=== PATIENT | male | born 1970 | race African-American/Black ===

== ENCOUNTER 2017-05-23 08:10 | Inpatient (IN) | payer MEDICARE ==
[~2017-05-23] VITALS: Ht 162.6 cm; Wt 69.4 kg
[2017-05-23] MEDS ORDERED: TIVICAY50 MG PO (08:28)
[2017-05-23] MEDS ORDERED: LASIX40 MG PO (08:28)
[2017-05-23] MEDS ORDERED: RENVELA800 MG PO (08:29)
[2017-05-23] MEDS ORDERED: MAG-OXIDE400 MG PO (08:31)
[2017-05-23] MEDS ORDERED: VENTOLIN HFA18 GM INH (08:32)
[2017-05-23 15:14] VITALS: BP 143/100; BMI 26.2
[2017-05-23 20:00] VITALS: BP 147/92
[2017-05-24 04:00] VITALS: BP 131/85
[2017-05-24 05:57] LABS: BASOPHILS 0.5 % (0-2); EOSINOPHILS 8.2 % (0-7); HEMATOCRIT 35.4 % (42.0-54.0); HEMOGLOBIN 11.1 g/dL (13.5-17.5); IMMATURE GRANULOCYTES 0.2 % (0-5); LYMPHOCYTES 19.6 % (15-50); MCH 25.5 pg (26.0-34.0); MCHC 31.4 g/dL (31.0-37.0); MCV 81.4 fL (80.0-100.0); MEAN PLATELET VOLUME 9.3 fL (7.4-10.4); MONOCYTES 14.9 % (2-11); NEUTROPHILS 56.6 % (40-80); PLATELET COUNT 287 10x3/uL (130-400); RBC 4.35 10x6/uL (4.20-6.10); RDW 17.3 % (11.5-14.5); WBC 5.7 10x3/uL (4.8-10.8)
[2017-05-24 06:32] LABS: CALCIUM 9.9 mg/dL (8.5-10.1); CARBON DIOXIDE 28.2 mmol/L (21.0-32.0); CREATININE - SERUM 13.7 mg/dL (0.6-1.3); POTASSIUM - SERUM 4.2 mmol/L (3.5-5.1)
[2017-05-24 06:33] LABS: PHOSPHOROUS 9.2 mg/dL (2.5-4.9)
[2017-05-24 09:12] VITALS: BP 157/92
[2017-05-24 10:02] VITALS: Ht 162.6 cm; Wt 69.4 kg
[2017-05-24 12:10] VITALS: BP 130/63
[2017-05-24 17:34] VITALS: BP 144/76
[2017-05-25 00:30] VITALS: BP 109/55
[2017-05-25 04:30] VITALS: BP 119/77
[2017-05-25 06:55] LABS: BASOPHILS 0.5 % (0-2); EOSINOPHILS 7.3 % (0-7); HEMATOCRIT 37.8 % (42.0-54.0); HEMOGLOBIN 11.6 g/dL (13.5-17.5); IMMATURE GRANULOCYTES 0.2 % (0-5); LYMPHOCYTES 25.5 % (15-50); MCH 25.3 pg (26.0-34.0); MCHC 30.7 g/dL (31.0-37.0); MCV 82.5 fL (80.0-100.0); MEAN PLATELET VOLUME 9.3 fL (7.4-10.4); MONOCYTES 15.2 % (2-11); NEUTROPHILS 51.3 % (40-80); PLATELET COUNT 299 10x3/uL (130-400); RBC 4.58 10x6/uL (4.20-6.10); RDW 17.7 % (11.5-14.5); WBC 5.5 10x3/uL (4.8-10.8)
[2017-05-25 07:23] LABS: ANION GAP 16.6 mmol/L (8-16); CALCIUM 10.1 mg/dL (8.5-10.1); CARBON DIOXIDE 27.8 mmol/L (21.0-32.0); CREATININE - SERUM 10.8 mg/dL (0.6-1.3); PHOSPHOROUS 7.6 mg/dL (2.5-4.9); POTASSIUM - SERUM 4.4 mmol/L (3.5-5.1)
[2017-05-25 09:37] VITALS: BP 126/78
[2017-05-25 12:33] VITALS: BP 111/73
== END 2017-05-25 15:18 | disposition home or self-care (01) | DRG 640 ==
LOC: D.OPS 08:10 → D.M2 08:11
PROVIDERS: Internal Medicine Nephrology
PROC: 5A1D70Z Performance of Urinary Filtration, Intermittent, Less than 6 Hours Per Day (ICD-10-PCS; principal; 2017-05-23)
DX: E87.5 Hyperkalemia (principal); N18.6 End stage renal disease; B20 Human immunodeficiency virus [HIV] disease; I12.0 Hypertensive chronic kidney disease with stage 5 chronic kidney disease or end stage renal disease; Z99.2 Dependence on renal dialysis; Z91.15 Patient's noncompliance with renal dialysis; Z87.891 Personal history of nicotine dependence; D63.1 Anemia in chronic kidney disease

== ENCOUNTER 2017-08-18 02:30 | Observation (INO) | payer MEDICARE ==
[~2017-08-18] VITALS: Ht 162.6 cm; Wt 71.6 kg
[~2017-08-18 02:30] MED LIST: LASIX40 MG PO; MAG-OXIDE400 MG PO; RENVELA800 MG PO; TIVICAY50 MG PO; VENTOLIN HFA18 GM INH
[2017-08-18 02:46] VITALS: BMI 25.7
[2017-08-18 04:00] VITALS: BP 137/85
[2017-08-18 07:00] VITALS: BP 125/72
[2017-08-18 13:02] VITALS: Ht 162.6 cm; Wt 71.6 kg
[2017-08-18 13:38] VITALS: BP 126/82
[2017-08-18 20:00] VITALS: BP 104/57
[2017-08-19] VITALS: BP 107/59
[2017-08-19 04:30] VITALS: BP 104/59
[2017-08-19 08:16] VITALS: BP 114/60
[2017-08-19 11:23] VITALS: BP 107/74
== END 2017-08-19 16:44 | disposition home or self-care (01) ==
LOC: OBSVTIME 02:30 → D.M2 02:30
DX: E87.5 Hyperkalemia (principal); J81.1 Chronic pulmonary edema; N18.6 End stage renal disease; Z99.2 Dependence on renal dialysis; Z91.15 Patient's noncompliance with renal dialysis

== ENCOUNTER 2018-12-03 21:38 | Inpatient (IN) | payer MEDICARE ==
[~2018-12-03] VITALS: Ht 162.6 cm; Wt 78.1 kg
[2018-12-03] MEDS ORDERED: COREG 3.1253.125 MG PO (21:42)
[2018-12-03] MEDS ORDERED: SENSIPAR60 MG PO (21:43)
[2018-12-03 22:44] LABS: BASOPHILS 0.5 % (0-2); EOSINOPHILS 2.7 % (0-7); HEMOGLOBIN 10.5 g/dL (13.5-17.5); IMMATURE GRANULOCYTES 0.3 % (0-5); LYMPHOCYTES 14.2 % (15-50); MCH 25.4 pg (26.0-34.0); MCHC 31.8 g/dL (31.0-37.0); MCV 79.7 fL (80.0-100.0); MONOCYTES 10.6 % (2-11); NEUTROPHILS 71.7 % (40-80); RBC 4.14 10x6/uL (4.20-6.10); RDW 19.5 % (11.5-14.5); WBC 8.8 10x3/uL (4.8-10.8)
[2018-12-03 22:45] LABS: PLATELET COUNT 177 10x3/uL (130-400)
[2018-12-03 23:04] LABS: ALBUMIN 3.7 g/dL (3.4-5.0); ANION GAP 21.1 mmol/L (8-16); BILIRUBIN - TOTAL 1.03 mg/dL (0.2-1.3); CALCIUM 8.4 mg/dL (8.5-10.1); CARBON DIOXIDE 22.6 mmol/L (21.0-32.0); CREATININE - SERUM 19.8 mg/dL (0.6-1.3); POTASSIUM - SERUM 5.7 mmol/L (3.5-5.1); PROTEIN - SERUM 8.6 g/dL (6.4-8.2)
--- NOTE | 2018-12-03 23:09 | NUR ---
CRITICAL LAB, GLUCOSE 63, EDP SOURAV NOTIFIED.
--- NOTE | 2018-12-03 23:12 | NUR ---
PT PROVIDED TURKEY SANDWICH WITH ORANGES. PT SITTING UPRIGHT ON BED. NO S/S OF ACUTE DISTRESS NOTED.
[2018-12-03 23:15] VITALS: BP 182/122
[2018-12-04] VITALS (49 sets, daily range): BP systolic 111–195; BP diastolic 68–136; Ht 162.6 cm; Wt 78.1 kg
--- NOTE | 2018-12-04 02:44 | NUR ---
PT TO UNIT AT 0025 FROM ER VIA WHEELCHAIR. TRANSFERS SELF TO ICU BED. ER NURSE WITH PT. PLACED ON MONITOR. SODIUM BICARB MIXED PER ORDERS. PT COMPLAINS OF NAUSEA AND BEGINS VOMITING. DR ELLSWORTH PAGED AT 0041 REPORTED NAUSEA AND VOMITING, ELEVATED BLOOD PRESSURES, RECEIVED ORDERS FOR ZOFRAN AND CARDENE DRIP. ORDERS ENTERED AND STARTED. ASSESSMENT COMPLETED, SEE FLOW SHEET. ON BEDSIDE COMMODE FOR SECOND TIME AT THIS TIME. SMALL SOFT BM NOTED ON FIRST. CALL LIGHT IN REACH. WILL CONTINUE TO OBSERVE.
[2018-12-04 04:59] LABS: ANION GAP 23.9 mmol/L (8-16); CALCIUM 8.1 mg/dL (8.5-10.1); CARBON DIOXIDE 21.8 mmol/L (21.0-32.0); POTASSIUM - SERUM 5.7 mmol/L (3.5-5.1)
--- NOTE | 2018-12-04 05:00 | NUR ---
PT WITH LOOSE STOOL. PROVIDES SELF PERICARE. I&OS COMPLETED. CALL LIGHT IN REACH.
[2018-12-04 05:07] LABS: CREATININE - SERUM 20.3 mg/dL (0.6-1.3)
--- NOTE | 2018-12-04 07:15 | NUR ---
REPORT RECEIVED. PT RESTING QUIETLY. PT IS RESERVE RIGHT ARM. HE HAS IVS IN HIS LEFT AC AND LEFT HAND. SODIUM BICARB @ 100ML/HR AND CARDIZEM AT 5MCG/HR. PT GETS DIALYSIS TUES, THURS, AND SAT. HE WILL RECEIVE DIALYSIS TODAY, WELL. PT IS WEARING O2 AT 2L. PT HAS NO COMPLAINTS OR NEEDS AT THIS TIME. WILL CONTINUE TO MONITOR.
--- NOTE | 2018-12-04 09:30 | NUR ---
PT TOOK AM MEDS WITH DRINK OF WATER. NO COMPLAINTS. HR IS SLIGHTLY TACHYCARDIC AT 101. COREG GIVEN. BP ELEVATED. WILL CONTINUE TO MONITOR.
--- NOTE | 2018-12-04 11:15 | NUR ---
PT CURRENTLY RECEIVING DIALYSIS. WILL GET ANOTHER ABG ONCE DIALYSIS IS DONE TO SEE WHAT PH LEVEL IS TO POSSIBLY START PT ON A DIET. WILL CONTINUE TO MONITOR.
--- NOTE | 2018-12-04 13:30 | NUR ---
PT STILL RECEIVING DIALYSIS. VSS. BICARB HAS FINISHED INFUSING. CARDIZEM DRIP STILL INFUSING AT 5MCG/HR. WILL CONTINUE TO MONITOR.
--- NOTE | 2018-12-04 15:54 | NUR ---
4 LITERS TAKEN OFF WITH DIALYSIS. SPOKE WITH TOYA CHRISTOPHER, REGARDING PT'S NEW ABG RESULTS. SAID IT WAS OKAY TO ORDER A DIET FOR HIM. WILL CONTINUE TO MONITOR.
--- NOTE | 2018-12-04 16:30 | NUR ---
TITRATED CARDENE FROM 5MCG/HR TO 2.5MCG/HR. WILL MONITOR BP.
--- NOTE | 2018-12-04 17:18 | NUR ---
BP 124/79. STOPPING CARDENE.
--- NOTE | 2018-12-04 19:41 | NUR ---
REPORT RECEIVED, SHIFT ASSESSMENT COMPLETED PER FLOW SHEET. AAOX4. PPP. VSS. DENIES NEEDS. SEE FLOW SHEET FOR COMPLETE ASSESSMENT. WILL CONTINUE TO MONITOR. CALL LIGHT WITHIN REACH.
--- NOTE | 2018-12-04 20:47 | NUR ---
CALL LIGHT ANSWERED, ASSISSTED TO BEDSIDE COMMODE, VOID X1 30 ML YELLOW URINE. ASSISSTED BACK IN BED. DENIES OTHER NEEDS. CALL LIGHT WITHIN REACH.
--- NOTE | 2018-12-04 22:08 | NUR ---
RESTING IN BED, WATCHING TV, DENIES NEEDS. CALL LIGHT WITHIN REACH.
--- NOTE | 2018-12-04 23:17 | NUR ---
REASSESSMENT COMPLETED PER FLOW SHEET, SEE FOR DETAILS. NO ACUTE CHANGES NOTED. DENIES NEEDS. CALL LIGHT WITHIN REACH. WILL CONTINUE TO MONITOR.
[2018-12-05] VITALS (13 sets, daily range): BP systolic 98–156; BP diastolic 48–110
--- NOTE | 2018-12-05 01:34 | NUR ---
RESTING, DENIES NEEDS. WILL CONTINUE TO MONITOR.
--- NOTE | 2018-12-05 03:18 | NUR ---
REASSESSMENT COMPLETED PER FLOW SHEET, SEE FOR DETAILS. DENIES NEEDS. CALL LIGHT WITHIN REACH. WILL CONTINUE TO MONITOR.
--- NOTE | 2018-12-05 05:00 | NUR ---
DENIES NEEDS, NO ACUTE DISTRESS NOTED, CALL LIGHT WITHIN REACH.
--- NOTE | 2018-12-05 06:53 | NUR ---
SPOKE TO DR. ELLSWORTH, ORDERS RECEIVED TO GIVE COREG NOW AND ORDER CBC, BMP.
--- NOTE | 2018-12-05 07:00 | NUR ---
RECEIVED BEDSIDE REPORT ON PATIENT AND ASSUMED CARE OF PATIENT. DR. ELLSWORTH AT ROOM OK TO TRANSFER TO FLOOR, WILL NEED DIALYSIS TODAY. VSS. PATIENT ALERT AND ORIENTED X 4. HEAD TO TO ASSESSMENT COMPLETED. FISTULA TO RIGHT WRIST WITH POSITIVE THRILL AND BRUIT. IV 18 GA TO LEFT AC NSL AND IV 22 GA TO RIGHT FA NSL.
[2018-12-05 07:59] LABS: BASOPHILS 0.6 % (0-2); EOSINOPHILS 9.2 % (0-7); HEMATOCRIT 31.1 % (42.0-54.0); HEMOGLOBIN 9.9 g/dL (13.5-17.5); MCH 25.4 pg (26.0-34.0); MCHC 31.8 g/dL (31.0-37.0); MCV 79.9 fL (80.0-100.0); MEAN PLATELET VOLUME 8.4 fL (7.4-10.4); MONOCYTES 11.8 % (2-11); NEUTROPHILS 61.4 % (40-80); RBC 3.89 10x6/uL (4.20-6.10); RDW 19.6 % (11.5-14.5)
[2018-12-05 08:07] LABS: ANION GAP 17.9 mmol/L (8-16); CALCIUM 7.6 mg/dL (8.5-10.1); CARBON DIOXIDE 26.7 mmol/L (21.0-32.0)
[2018-12-05 08:09] LABS: CREATININE - SERUM 13.7 mg/dL (0.6-1.3); POTASSIUM - SERUM 4.6 mmol/L (3.5-5.1)
[2018-12-05 08:10] LABS: PLATELET COUNT 137 10x3/uL (130-400); WBC 3.5 10x3/uL (4.8-10.8)
--- NOTE | 2018-12-05 08:19 | NUR ---
PATIENT ATE 100% OF BREAKFAST TRAY.
--- NOTE | 2018-12-05 09:07 | NUR ---
PATIENT RESTING QUIETLY, WATCHING TV. VSS. MEDS PER MAR.
--- NOTE | 2018-12-05 09:58 | NUR ---
CALLED REPORT TO LACIE POLANCO PATIENT TO TRANSFER TO ROOM 2108.
--- NOTE | 2018-12-05 16:57 | NUR ---
DELIVERED THE PATIENT TO DIALYSIS VIA WHEELCHAIR
--- NOTE | 2018-12-05 19:55 | NUR ---
RETURN FROM DIALISYS VIA WC LCTA DENIES PAIN OR NEEDS SKIN WARM AND DRY TO BED LOW AND LOCKED WITH CALL LIGHT IN REACH
[2018-12-06] VITALS: BP 143/98
[2018-12-06 04:00] VITALS: BP 128/85
[2018-12-06 05:10] LABS: BASOPHILS 0.6 % (0-2); EOSINOPHILS 6.4 % (0-7); HEMATOCRIT 31.6 % (42.0-54.0); HEMOGLOBIN 10.3 g/dL (13.5-17.5); IMMATURE GRANULOCYTES 0.3 % (0-5); LYMPHOCYTES 17.8 % (15-50); MCHC 32.6 g/dL (31.0-37.0); MCV 79.8 fL (80.0-100.0); MEAN PLATELET VOLUME 9.1 fL (7.4-10.4); MONOCYTES 22.7 % (2-11); NEUTROPHILS 52.2 % (40-80); RBC 3.96 10x6/uL (4.20-6.10); RDW 19.4 % (11.5-14.5); WBC 3.3 10x3/uL (4.8-10.8)
[2018-12-06 05:37] LABS: ANION GAP 15.9 mmol/L (8-16); CALCIUM 7.5 mg/dL (8.5-10.1); CARBON DIOXIDE 28.1 mmol/L (21.0-32.0); CREATININE - SERUM 11.2 mg/dL (0.6-1.3); PHOSPHOROUS 7.5 mg/dL (2.5-4.9)
[2018-12-06 05:46] LABS: PLATELET COUNT 167 10x3/uL (130-400)
--- NOTE | 2018-12-06 07:20 | NUR ---
INITIAL ROUNDING, BEDSIDE REPORT. PATIENT IS SLEEPING ON HIS RIGHT SIDE, LIGHTS AND TV OFF. CALL LIGHT IN REACH. PATIENT IS BEING DISCHARGED HOME TODAY AFTER WEANING OFF O2.
[2018-12-06 08:00] VITALS: BP 121/82
--- NOTE | 2018-12-06 09:32 | MORECARE ---
CASE MANAGEMENT DISCHARGE SUMMARY PATIENT: LARRY CRUZ UNIT: [id number] ADM DATE: 12/03/18 AGE: 48 : 74 SEX: M ROOM/BED: D.2108 AUTHOR: CAILIN,DOC PHYSICIAN: REFERRING PHYSICIAN: FRED STRAUSS MD DATE OF SERVICE: 12/06/18 Discharge Plan Patient Name: LARRY CRUZ Facility: [facility]:[place] : 1970 Planned Disposition: Home Anticipated Discharge Date: 12/06/18 Discharge Date: Expected LOS: 3 Initial Reviewer: [email or web address] Initial Review Date: 12/06/2018 Generated: 12/06/18 10:32 am Comments DCP- Discharge Planning Updated by [id number]: Michael Matthews on 12/06/18 8:[address] Patient Name: LARRY CRUZ Admission Status: ER Accout number: [id number] Admission Date: 12-03-2018 : 1970 Admission Diagnosis: Attending: Fred Strauss Current LOS: 3 Anticipated DC Date: 12-06-2018 Planned Disposition: Home Primary Insurance: MEDICARE A & B Discharge Planning Comments: CM RECEIVED DISCHARGE ORDER, MET WITH PT IN ROOM TO DISCUSS DISCHARGE PLANNING AND NEEDS. PT REPORTS LIVING AT HOME INDEPENDENTLY AND ALONE. PT HAS NEBULIZER WITH NO MEDICAL EQUIPMENT PROVIDER PREFERENCE AND NO OUTSIDE SERVICES ASSISTING IN THE HOME. PT HAS OUTPATIENT DIALYSIS IN [facility], 1130AM, [facility]. CM DISCUSSED AVAILABILITY OF HOME HEALTH, REHAB SERVICES AND MEDICAL EQUIPMENT. PT DENIES DISCHARGE NEEDS, REPORTS HIS MOTHER WILL PICK HIM UP FOR DISCHARGE HOME TODAY. IMPORTANT MESSAGE FROM MEDICARE PROVIDED AND EXPLAINED. SCUBA DIVING TEACHER NURSE NOTIFIED. Human Resources File Clerk: Michael Matthews DCPIA - Discharge Planning Initial Assessment Updated by [id number]: Michael Matthews on 12/06/18 9:28 am * Is the patient Alert and Oriented? Yes * How many steps to enter\exit or inside your home? NONE * PCP DR. SHAVONNE MELENDEZ * [facility]acy [facility] * Preadmission Environment Home Alone * ADLs Independent * Equipment Nebulizer * Other Equipment NO MEDICAL EQUIPMENT PROVIDER PREFERENCE * List name and contact numbers for known caregivers / representatives who currently or will assist patient after discharge: EVA CRUZ, MOTHER, * Verbal permission to speak to the caregivers and representatives has been obtained from the patient. N/A * Community resources currently utilized Other * Please name any agencies selected above. OUTPATIENT DIALYSIS, [facility] [place], [facility], [employer] * Additional services required to return to the preadmission environment? No * Can the patient safely return to the preadmission environment? Yes * Has this patient been hospitalized within the prior 30 days at any hospital? No Coverage Notice Reviewer: [id number] Ingrid Matthews Notice Issued Date-Time: 12/06/2018 9:15 Notice Type: IM Discharge Notice Notice Delivered To: Patient Relationship to Patient: Packaging Machine Operator Name: Delivery Method: HAND - Hand Delivered Ellie Days: Prior Verbal Notification: Recipient Understood Notice: Yes Recipient Signature: Yes Med Rec Note Co-signed by Attending: Coverage Notice Comment: Patient Name: LARRY CRUZ Page [phone] at 0932 All edits/amendments must be made on the electronic document DICTATION DATE: 12/06/18931 MACHINE STEMMER: ISAK 12/06/18931 RPT#: [id number] DC DATE: STATUS: ADM IN [facility] [address] [place] [address] END OF REPORT
--- NOTE | 2018-12-06 12:48 | NUR ---
BOTH IVS REMOVED FROM THE LEFT ARM, BOTH TIPS INTACT.
== END 2018-12-06 15:09 | disposition home or self-care (01) | DRG 640 ==
LOC: D.ER 21:38 → D.ICU 23:37 → D.M2 12-05 10:31
PROVIDERS: Emergency Medicine; ADMIT Internal Medicine Nephrology; ATTEND Internal Medicine Nephrology
PROC: 5A1D70Z Performance of Urinary Filtration, Intermittent, Less than 6 Hours Per Day (ICD-10-PCS; principal; 2018-12-04)
DX: E87.5 Hyperkalemia (principal); N18.6 End stage renal disease; I12.0 Hypertensive chronic kidney disease with stage 5 chronic kidney disease or end stage renal disease; B20 Human immunodeficiency virus [HIV] disease; R04.2 Hemoptysis; E11.22 Type 2 diabetes mellitus with diabetic chronic kidney disease; Z99.2 Dependence on renal dialysis; E83.39 Other disorders of phosphorus metabolism; D63.1 Anemia in chronic kidney disease; E87.70 Fluid overload, unspecified

== ENCOUNTER 2019-05-03 01:45 | Inpatient (IN) | payer MEDICARE ==
[~2019-05-03] VITALS: Ht 162.6 cm; Wt 77.6 kg
[2019-05-03] VITALS (7 sets, daily range): BP systolic 112–205; BP diastolic 68–131; Ht 162.6 cm; Wt 77.6 kg
[~2019-05-03 01:45] MED LIST changes: +COREG 3.1253.125 MG PO; +SENSIPAR60 MG PO
[2019-05-03] MEDS ORDERED: TENOFOVIR PO (02:10)
[2019-05-03 02:12] LABS: BASOPHILS 0.2 % (0-2); HEMATOCRIT 36.7 % (42.0-54.0); HEMOGLOBIN 11.8 g/dL (13.5-17.5); IMMATURE GRANULOCYTES 0.4 % (0-5); LYMPHOCYTES 20.4 % (15-50); MCH 26.3 pg (26.0-34.0); MCHC 32.2 g/dL (31.0-37.0); MCV 81.9 fL (80.0-100.0); MEAN PLATELET VOLUME 8.5 fL (7.4-10.4); MONOCYTES 10.3 % (2-11); NEUTROPHILS 62.7 % (40-80); PLATELET COUNT 137 10x3/uL (130-400); RBC 4.48 10x6/uL (4.20-6.10); RDW 18.4 % (11.5-14.5); WBC 5.2 10x3/uL (4.8-10.8)
[2019-05-03 02:19] LABS: ANION GAP 24.4 mmol/L (8-16); CALCIUM 8.9 mg/dL (8.5-10.1); CREATININE - SERUM 22.4 mg/dL (0.6-1.3); POTASSIUM - SERUM 5.4 mmol/L (3.5-5.1)
--- NOTE | 2019-05-03 02:20 | NUR ---
PT GIVEN ICE CHIPS, DENIES ANY FURTHER NEEDS AT THIS TIME. CALL LIGHT WITHIN REACH. WILL CONTINUE TO MONITOR.
[2019-05-03 02:31] LABS: ALBUMIN 3.8 g/dL (3.4-5.0); BILIRUBIN - TOTAL 0.81 mg/dL (0.2-1.3); PROTEIN - SERUM 8.8 g/dL (6.4-8.2); TROPONIN-I 0.05 ng/mL (0.000-0.060)
--- NOTE | 2019-05-03 03:45 | NUR ---
PATIENT ARRIVED TO ROOM 2140 AT 0315 VIA WHEELCHAIR. PATIENT IS AAOX4, UP AD CHER. PATIENT HAVE PIV TO LT AC, SL, PATENT, DRSG C/D/I. FISTULA IS LOCATED ON RT ARM. PATIENT TRANSFERED TO BED INDEPENDENTLY. INSTRUCTED ON HOW TO USE CALL LIGHT, BED CONTROLS, AND TO CALL FOR ASSISTANCE. QUICK START, MED REC, ADULT HX, SRS COMPLETE.
--- NOTE | 2019-05-03 23:58 | NUR ---
LYING IN BED RESTING WITH EYES CLOSED. NO SIGNS OR SYMPTOMS OF DISTRESS. RESPIRATIONS EVEN AND UNLABORED. UP AD CHER. ALERT AND ORINTED x4. NO PAIN AT THIS PRESENT TIME. PT ADIVSED TO CALL IF HE NEEDS ANYTHING, WILL CONTINUE TO MONITOR.
[2019-05-04 04:00] VITALS: BP 136/76
--- NOTE | 2019-05-04 04:23 | NUR ---
I have reviewed this patient and I concur with the Shift Assessment completed by the Licensed Practical Nurse today this shift.
[2019-05-04 05:51] LABS: HEMATOCRIT 36.7 % (42.0-54.0); HEMOGLOBIN 11.7 g/dL (13.5-17.5); MCH 26.1 pg (26.0-34.0); MCHC 31.9 g/dL (31.0-37.0); MCV 81.7 fL (80.0-100.0); MEAN PLATELET VOLUME 9.1 fL (7.4-10.4); PLATELET COUNT 141 10x3/uL (130-400); RBC 4.49 10x6/uL (4.20-6.10); RDW 18.3 % (11.5-14.5)
[2019-05-04 05:55] LABS: WBC 3.1 10x3/uL (4.8-10.8)
--- NOTE | 2019-05-04 06:05 | NUR ---
LYING IN BED RESTING WITH EYES CLOSED. EASLIY AROUSED DURING VERBAL STIMULATION. NO COMPLAINTS OF PAIN AT THIS TIME. RESPIRATIONS EVEN AND UNLABORED. NO SIGNS OR SYMPTOMS OF DISTRESS NOTED. 78 SR ON TELEMETRY CALL LIGHT WITHIN REACH AND BEDS IN LOWEST POSITION.
[2019-05-04 06:27] LABS: ANION GAP 21.4 mmol/L (8-16); CARBON DIOXIDE 24.2 mmol/L (21.0-32.0); CREATININE - SERUM 18.5 mg/dL (0.6-1.3); POTASSIUM - SERUM 4.6 mmol/L (3.5-5.1)
[2019-05-04 06:51] LABS: ELLIPTOCYTES OCC; EOSINOPHILS 6 % (0-7); LYMPHOCYTES 27 % (15-50); MONOCYTES 8 % (2-11); NEUTROPHILS 58 % (40-80); PLATELET ESTIMATE NORMAL; TARGET CELLS 1+
[2019-05-04 06:52] LABS: ROULEAUX OCC
--- NOTE | 2019-05-04 07:32 | NUR ---
PT RECEIVED LAYING IN BED, WOKE WHEN ENTERED ROOM. BOARD UPDATED, PT WITHOUT COMPLAINTS AT PRESENT.
[2019-05-04] MEDS ORDERED: COREG12.5 MG PO (10:48)
[2019-05-04] MEDS ORDERED: COZAAR50 MG PO (10:48)
--- NOTE | 2019-05-04 14:16 | MORECARE ---
CASE MANAGEMENT DISCHARGE SUMMARY PATIENT: LARRY CRUZ UNIT: [id number] ADM DATE: 05/03/19 AGE: 48 : 74 SEX: M ROOM/BED: D.2140 AUTHOR: CAILINDOC PHYSICIAN: REFERRING PHYSICIAN: CHADWICK PULIDO MD DATE OF SERVICE: 05/04/19 Discharge Plan Patient Name: LARRY CRUZ Facility: [facility]:[place] : 1970 Planned Disposition: Anticipated Discharge Date: Discharge Date: Expected LOS: Initial Reviewer: [id number] Initial Review Date: 05/04/2019 Generated: 05/04/19 3:16 pm Comments DCP- Discharge Planning Updated by [id number]: Hilary Will on 05/04/19 1:[address] Patient Name: LARRY CRUZ Admission Status: ER Accout number: [id number] Admission Date: 05-03-2019 : 1970 Admission Diagnosis: Attending: CHADWICK PULIDO Current LOS: 1 Anticipated DC Date: Planned Disposition: Primary Insurance: MEDICARE A & B Discharge Planning Comments: CM MET WITH PATIENT AFTER OBTAINING VERBAL CONSENT. STATES HAS AN AID AT HOME AND DOES NOT NEED HH, REHAB, OR ANY EQUIPMENT. HAS NEBULIZER AT HOME BUT IS OUT OF [facility] MEDS. ADAM CHRISTOPHER NOTIFIED AND SHE IS LOOKING INTO THIS. PATIENT HAD DIALYSIS HERE TODAY, GOES TO [facility] [place]. [facility] IS CALLING FAMILY TO PICK HIM UP. CM TO FOLLOW AND ASSIST NEEDED. Information Technology Audit Manager: Hilary Will DCPIA - Discharge Planning Initial Assessment Updated by [id number]: Hilary Will on 05/04/19 2:12 pm * Is the patient Alert and Oriented? Yes * PCP [facility] * [facility]acy [facility] * ADLs Independent * Other Equipment [facility] * List name and contact numbers for known caregivers / representatives who currently or will assist patient after discharge: MOTHER * Please name any agencies selected above. HAS AN AID THROUGH [facility] * Additional services required to return to the preadmission environment? No * Can the patient safely return to the preadmission environment? Yes * Has this patient been hospitalized within the prior 30 days at any hospital? No Patient Name: LARRY CRUZ Page [phone] at 1416 All edits/amendments must be made on the electronic document DICTATION DATE: 05/04/191415 SPACE TECHNOLOGIST: ISAK 05/04/191415 RPT#: [id number] DC DATE: STATUS: ADM IN [facility] [address] [place] [address] END OF REPORT
--- NOTE | 2019-05-04 14:32 | NUR ---
PT INFORMED OF DISCHARGE ORDERS AND DISCUSSED PLAN, STATES HE DOESN'T HAVE A RIDE TILL IN MORNING (FAMILY COMING FROM [facility]). SOLID WASTE ENGINEER AND CASE MGMT UPDATED.
--- NOTE | 2019-05-04 16:02 | MORECARE ---
CASE MANAGEMENT DISCHARGE SUMMARY PATIENT: LARRY CRUZ UNIT: [id number] ADM DATE: 05/03/19 AGE: 48 : 74 SEX: M ROOM/BED: D.2140 AUTHOR: CAILINDOC PHYSICIAN: REFERRING PHYSICIAN: CHADWICK PULIDO MD DATE OF SERVICE: 05/04/19 Discharge Plan Patient Name: LARRY CRUZ Facility: [facility]:[place] : 1970 Planned Disposition: Anticipated Discharge Date: Discharge Date: Expected LOS: Initial Reviewer: [id number] Initial Review Date: 05/04/2019 Generated: 05/04/19 5:02 pm Comments DCP- Discharge Planning Updated by [id number]: Hilary Will on 05/04/19 1:[address] Patient Name: LARRY CRUZ Admission Status: ER Accout number: [id number] Admission Date: 05-03-2019 : 1970 Admission Diagnosis: Attending: CHADWICK PULIDO Current LOS: 1 Anticipated DC Date: Planned Disposition: Primary Insurance: MEDICARE A & B Discharge Planning Comments: CM MET WITH PATIENT AFTER OBTAINING VERBAL CONSENT. STATES HAS AN AID AT HOME AND DOES NOT NEED HH, REHAB, OR ANY EQUIPMENT. HAS NEBULIZER AT HOME BUT IS OUT OF [facility] MEDS. ADAM CHRISTOPHER NOTIFIED AND SHE IS LOOKING INTO THIS. PATIENT HAD DIALYSIS HERE TODAY, GOES TO [facility] [place]. [facility] IS CALLING FAMILY TO PICK HIM UP. CM TO FOLLOW AND ASSIST NEEDED. Supervisor Asphalt Paving: Hilary Will DCPIA - Discharge Planning Initial Assessment Updated by [id number]: Hilary Will on 05/04/19 2:12 pm * Is the patient Alert and Oriented? Yes * PCP [facility] * [facility]acy [facility] * ADLs Independent * Other Equipment [facility] * List name and contact numbers for known caregivers / representatives who currently or will assist patient after discharge: MOTHER * Please name any agencies selected above. HAS AN AID THROUGH [facility] * Additional services required to return to the preadmission environment? No * Can the patient safely return to the preadmission environment? Yes * Has this patient been hospitalized within the prior 30 days at any hospital? No Last DP export: 05/04/19 1:16 pm Patient Name: LARRY CRUZ Page [phone] at 1602 All edits/amendments must be made on the electronic document DICTATION DATE: 05/04/191600 PHOTOGEOLOGIST: ISAK 05/04/191600 RPT#: [id number] DC DATE: STATUS: ADM IN [facility] [address] [place] [address] END OF REPORT
[2019-05-04 16:19] VITALS: BP 101/57
--- NOTE | 2019-05-04 17:46 | NUR ---
PT BEING DISCHARGED HOME. IV REMOVED. TELEMETRY REMOVED AND RETURNED TO CHIEF METER READER. INSTRUCTIONS REVIEWED AND SIGNED.
--- NOTE | 2019-05-06 10:30 | MORECARE ---
CASE MANAGEMENT DISCHARGE SUMMARY PATIENT: LARRY CRUZ UNIT: [id number] ADM DATE: 05/03/19 AGE: 48 : 74 SEX: M ROOM/BED: D.2140 AUTHOR: BRANDON SIMEON PHYSICIAN: REFERRING PHYSICIAN: CHADWICK PULIDO MD DATE OF SERVICE: 05/06/19 Discharge Plan Patient Name: LARRY CRUZ Facility: [facility]:[place] : 1970 Planned Disposition: Anticipated Discharge Date: Discharge Date: 05/04/2019 Expected LOS: Initial Reviewer: [email or web address] Initial Review Date: 05/04/2019 Generated: 05/06/19 11:30 am Comments DCP- Discharge Planning Updated by [id number]: Hilary Will on 05/04/19 1:[address] Patient Name: LARRY CRUZ Admission Status: ER Accout number: [id number] Admission Date: 05-03-2019 : 1970 Admission Diagnosis: Attending: CHADWICK PULIDO Current LOS: 1 Anticipated DC Date: Planned Disposition: Primary Insurance: MEDICARE A & B Discharge Planning Comments: CM MET WITH PATIENT AFTER OBTAINING VERBAL CONSENT. STATES HAS AN AID AT HOME AND DOES NOT NEED HH, REHAB, OR ANY EQUIPMENT. HAS NEBULIZER AT HOME BUT IS OUT OF [facility] MEDS. ADAM ASHWIN NOTIFIED AND SHE IS LOOKING INTO THIS. PATIENT HAD DIALYSIS HERE TODAY, GOES TO [facility] [place]. [facility] IS CALLING FAMILY TO PICK HIM UP. CM TO FOLLOW AND ASSIST NEEDED. Vp Director Of Creative Strategy: Hilary Will DCPIA - Discharge Planning Initial Assessment Updated by [id number]: Hilary Will on 05/04/19 2:12 pm * Is the patient Alert and Oriented? Yes * PCP [facility] * Pharmacy [facility] * ADLs Independent * Other Equipment [facility] * List name and contact numbers for known caregivers / representatives who currently or will assist patient after discharge: MOTHER * Please name any agencies selected above. HAS AN AID THROUGH [facility] * Additional services required to return to the preadmission environment? No * Can the patient safely return to the preadmission environment? Yes * Has this patient been hospitalized within the prior 30 days at any hospital? No Last DP export: 05/04/19 3:02 pm Patient Name: LARRY CRUZ Page [phone] at 1030 All edits/amendments must be made on the electronic document DICTATION DATE: 05/06/19 1030 CONDENSER SETTER: ISAK 05/06/19 1030 RPT#: [id number] DC DATE:05/04/19 STATUS: DIS IN [facility] [address] [place] [address] END OF REPORT
--- NOTE | 2019-05-07 09:24 | EC ---
PATIENT:LARRY CRUZ DATE OF SERVICE: 05/03/19 SEX: M MEDICAL RECORD: [id number] DATE OF : [birth year] LOCATION:D.M2 D.214 AGE OF PATIENT: 48 ADMISSION DATE: 05/03/19 REFERRING PHYSICIAN: INTERPRETING PHYSICIAN: THUY RAMOS MD ECHOCARDIOGRAM REPORT ECHO CHARGES 4 ECHO COMPLETE Date: 05/03/19 CLINICAL DIAGNOSIS: CARDIOMEGALY/ELEVATED BNP/HTN ECHOCARDIOGRAPHIC MEASUREMENTS (adult normal given) AC root (d.<3.7cm) 3.1 cm LV Septum d (<1.2 cm> 1.0 cm Valve Excursion 1.5 cm LV Septum (systole) 1.2 cm Left Atria (s.<4.0cm> 3.7 cm LVPW d(<1.2cm) 1.0 cm RV (d.<2.3cm) 3.0 cm LVPW (sytole) 1.3 cm LV diastole(<5.6CM) 4.4 cm MV E-F(>70mm/sec) cm LV systole 3.7 cm LVOT Diameter 1.8 cm MV exc.(>10mm) cm Est.ejection fraction (50-75%) % DOPPLER: LVIT cm/sec A 66.0 cm/sec E 107 cm/sec LA cm/sec RVSP 17.0 mmHg LVOT 75.0 cm/sec AOP1/2T m/s Asc. Ao 130 cm/sec RVOT cm/sec RA cm/sec PA cm/sec AV Gradient Peak 6.8 mmHg AV Mean 3.7 mmHg AV Area 1.3 cm MV Gradient Peak 5.8 mmHg MV Mean 2.4 mmHg MV Area cm COMMENTS: Certified Juvenile Probation Officer: 1 JORGE ANDREWSOE Research Engineer: 3 Dr. Sherman TAPE# PACS Pericardial Effusion N DATE OF SERVICE: Adequate 2D, color flow, spectral Doppler, and M-Mode. No LVH. LV internal dimensions are normal. Wall motion is normal. Shows global hypokinesis with reduced EF, estimated at 20% to 25%. Aortic valve is tricuspid. No evidence of stenosis by Doppler interrogation. Left atrium is normal at 3.7 cm. Mitral valve shows no prolapse. Trace MR. Right-sided chambers are grossly normal. Mild TR. ECHOCARDIOGRAM REPORT [id number] LARRY CRUZ TRANSINT:[id number] Voice Confirmation ID: [id number] DOCUMENT ID: [id number] THUY RAMOS MD at 0924 CC: [id number] DICTATION DATE: 05/03/19 1557 STAVE HEWER: 05/04/19 0255 DIS IN 05/04/19 [place] [id number] [place] [id number]
== END 2019-05-04 17:47 | disposition home or self-care (01) | DRG 291 ==
LOC: D.ER 01:45 → D.M2 02:31 → OBSVTIME 02:31 → D.M2 02:31
PROVIDERS: Family Medicine; ADMIT Family Medicine; ATTEND Family Medicine
PROC: 5A1D70Z Performance of Urinary Filtration, Intermittent, Less than 6 Hours Per Day (ICD-10-PCS; principal; 2019-05-03)
DX: I13.2 Hypertensive heart and chronic kidney disease with heart failure and with stage 5 chronic kidney disease, or end stage renal disease (principal); N18.6 End stage renal disease; N25.81 Secondary hyperparathyroidism of renal origin; I50.20 Unspecified systolic (congestive) heart failure; E11.22 Type 2 diabetes mellitus with diabetic chronic kidney disease; I16.0 Hypertensive urgency; E87.5 Hyperkalemia; Z21 Asymptomatic human immunodeficiency virus [HIV] infection status; Z91.15 Patient's noncompliance with renal dialysis; Z99.2 Dependence on renal dialysis; I42.9 Cardiomyopathy, unspecified; D63.1 Anemia in chronic kidney disease

== ENCOUNTER 2019-11-03 23:31 | Inpatient (IN) | payer MEDICARE ==
[~2019-11-03] VITALS: Ht 162.6 cm; Wt 71.8 kg
[~2019-11-03 23:31] MED LIST changes: +COREG12.5 MG PO; +COZAAR50 MG PO; +TENOFOVIR PO
[2019-11-04] VITALS (15 sets, daily range): BP systolic 80–161; BP diastolic 65–133; BMI 29.6
[2019-11-04 01:10] LABS: HEMOGLOBIN 8.8 g/dL (13.5-17.5); MCH 25.4 pg (26.0-34.0); MCHC 30.3 g/dL (31.0-37.0); MCV 83.8 fL (80.0-100.0); MEAN PLATELET VOLUME 9.2 fL (7.4-10.4); PLATELET COUNT 251 10x3/uL (130-400); RBC 3.46 10x6/uL (4.20-6.10); RDW 17.5 % (11.5-14.5); WBC 8.8 10x3/uL (4.8-10.8)
[2019-11-04 01:13] LABS: ANION GAP 18.7 mmol/L (8-16); CALCIUM 8.9 mg/dL (8.5-10.1); CARBON DIOXIDE 23.6 mmol/L (21.0-32.0); CREATININE - SERUM 19.4 mg/dL (0.6-1.3); POTASSIUM - SERUM 5.3 mmol/L (3.5-5.1)
[2019-11-04 01:31] LABS: ALBUMIN 3.4 g/dL (3.4-5.0); BILIRUBIN - TOTAL 0.68 mg/dL (0.2-1.3); C-REACTIVE PROTEIN 16.1 mg/dL (0.0-0.9); PROTEIN - SERUM 8.8 g/dL (6.4-8.2); THYROID STIMULATING HORMONE 1.69 uIU/mL (0.36-3.74); TROPONIN-I 0.059 ng/mL (0.000-0.060)
[2019-11-04 01:41] LABS: EOSINOPHILS 4 % (0-7); LYMPHOCYTES 8 % (15-50); MONOCYTES 22 % (2-11); NEUTROPHILS 66 % (40-80); PLATELET ESTIMATE NORMAL
--- NOTE | 2019-11-04 04:25 | NUR ---
PT RECIEVED TO ICU RM 2312. AWAKE AND ALERT. DENIES PAIN OR NEEDS. MONITOR EQUIP ESTABLISHED. VSS. SITTING ON THE SIDE OF THE BED. STATES THAT HE IS TIRED OF LAYING DOWN. ISOLATION FOR POSSIBLE COVID-19. REPORTS THAT HE HAS DIALYSIS T,T,S. SAYS HE MISSED DIALYSIS TUESDAY DUE TO NOT FEELING WELL. PROVIDED BEDSIDE COMMODE PER REQUEST.
--- NOTE | 2019-11-04 09:00 | NUR ---
PT SITTING ON SIDE OF BED, PT STATES "IT'S EASIER FOR ME TO BREATH, AND MY CHEST DOESN'T HURT SO BAD ANYMORE." WILL CONT TO MONITOR.
--- NOTE | 2019-11-04 10:45 | NUR ---
DIALYSIS NURSE AT BEDSIDE. WILL CONT TO MONITOR.
--- NOTE | 2019-11-04 11:00 | NUR ---
REASSESSMENT COMPLETED PER FLOWSHEET, SEE FLOWSHEET FOR INFORMATION. NO ACUTE NEEDS OR DISTRESS NOTED AT THIS TIME. VSS. DIALYSIS NURSE AT [facility].
--- NOTE | 2019-11-04 13:00 | NUR ---
PT RESTING IN BED WATCHING TV AT THIS TIME. DENIES ANY ACUTE NEEDS OR DISTRESS. WILL CONT TO MONITOR.
--- NOTE | 2019-11-04 14:44 | NUR ---
REPORT CALLED TO [facility] ON MED 2. WILL CONT TO MONITOR.
--- NOTE | 2019-11-04 15:23 | NUR ---
RECEIVED PT TO ROOM 2127, VIA WHEELCHAIR. ORIENTED PT TO ROOM AND CALL LIGHT, PLACED ON DROPLET ISOLATION FOR PUI. PROVIDED PT WITH WATER AND SNACKS. PT DENIES ANY NEEDS AT THIS TIME. CALL LIGHT IN REACH, NAD NOTED, WILL CONTINUE TO MONITOR.
--- NOTE | 2019-11-04 15:25 | NUR ---
TRANSFERRED PT TO ROOM 2128 ON MED 2. NOTIFIED BELKIS LERNERN AND SUSU PCT. PT DENIES ANY ACUTE NEEDS OR DISTRESS AT THIS TIME.
--- NOTE | 2019-11-04 15:50 | NUR ---
ORDER FOR SPUTUM CULTURE, SPUTUM CULTURE PROVIDED FOR PT BUT PT STATES THAT HE IS NOT HAVING A PROD. COUGH AT THIS TIME.
--- NOTE | 2019-11-04 17:14 | NUR ---
PAGED DR. YEBOAH X2 TIMES, WAITING SCOUT EXECUTIVE BACK.
--- NOTE | 2019-11-04 19:00 | NUR ---
BEDSIDE REPORT RECEIVED, PT CARE ASSUMED. INTRODUCED SELF AND WROTE NAME ON BOARD. PT LYING IN BED, AAOX4, WATCHING TV. REQUESTING CUP OF ICE, PROVIDED. DENIES ANY NEEDS AT THIS TIME. BED IN LOWEST, SR X1, CALL LIGHT WITHIN REACH. WILL CTM.
--- NOTE | 2019-11-04 21:40 | NUR ---
RECIEVED REPORT FROM Miguel POLANCO. ALERT AND ORIENTED X4. UP AD CHER. WALKED TO ROOM. CARRIED HIS OWN BELONGINGS. RT ARM RESERVED D/T FISTULA. AVF HAS GOOD BRUITT AND YRILL. DENIES ANY NEEDS AT THIS TIME.
[2019-11-05 05:00] VITALS: BP 106/61
[2019-11-05 06:49] LABS: BASOPHILS 0.1 % (0-2); EOSINOPHILS 0.1 % (0-7); HEMATOCRIT 28.1 % (42.0-54.0); HEMOGLOBIN 8.8 g/dL (13.5-17.5); IMMATURE GRANULOCYTES 1.1 % (0-5); LYMPHOCYTES 8.4 % (15-50); MCH 25.4 pg (26.0-34.0); MCHC 31.3 g/dL (31.0-37.0); MEAN PLATELET VOLUME 9.1 fL (7.4-10.4); MONOCYTES 11.2 % (2-11); NEUTROPHILS 79.1 % (40-80); PLATELET COUNT 240 10x3/uL (130-400); RBC 3.46 10x6/uL (4.20-6.10); RDW 17.1 % (11.5-14.5); WBC 8.2 10x3/uL (4.8-10.8)
[2019-11-05 06:56] LABS: MCV 81.2 fL (80.0-100.0)
[2019-11-05 07:23] LABS: ANION GAP 18.9 mmol/L (8-16); CALCIUM 8.8 mg/dL (8.5-10.1); CARBON DIOXIDE 22.6 mmol/L (21.0-32.0); CREATININE - SERUM 17.2 mg/dL (0.6-1.3); POTASSIUM - SERUM 5.5 mmol/L (3.5-5.1)
--- NOTE | 2019-11-05 07:30 | NUR ---
REPORT RECIEVED. PT SITTING SEMI FOWLERS IN BED. RR EVEN AND UNLABORED ON RA. HE HAS A L AC PIV THAT IS SL. HE HAS A RIGHT AVF AND GOES TO DIALYSIS TTS. BED LOCKED AND IN LOWEST POSITION, CALL LIGHT WITHIN REACH. WILL CTM
[2019-11-05 07:49] LABS: PHOSPHOROUS 12.4 mg/dL (2.5-4.9)
[2019-11-05 08:30] VITALS: BP 113/68
--- NOTE | 2019-11-05 08:45 | NUR ---
PT SET UP TO TAKE SHOWER PER REQUEST. WILL CTM
[2019-11-05 12:00] VITALS: BP 102/53; BP 88/50
[2019-11-05 12:42] VITALS: Ht 162.6 cm; Wt 71.8 kg
[2019-11-05 16:50] VITALS: BP 102/53
--- NOTE | 2019-11-05 17:57 | NUR ---
I have reviewed this patient and I concur with the Shift Assessment completed by the Licensed Practical Nurse today this shift.
--- NOTE | 2019-11-05 19:23 | NUR ---
RECEIVED PT FROM ER VIA WHEELCHAIR. PT IS AWAKE ALERT AND ORIENTED x4. RESPIRATIONS EVEN AND UNLABORED. CALL LIGHT AND OTHER PERSONAL ITEMS WITH IN REACH. WILL CONTINUE TO MONITOR
--- NOTE | 2019-11-05 19:30 | NUR ---
REPORT RECEIVED, WILL CONTINUE POC. PATIENT IS AAXO4, LYING ON LEFT SIDE. NO S/S OF DISTRESS OBSERVED, RR EVEN AND UNLABORED ON ROOM AIR. PATIENT DENIES NEEDS AT THIS TIME. CL IN REACH, BED LOCKED AND LOWERED. WILL CTM.
[2019-11-05 20:00] VITALS: BP 112/79
[2019-11-06 04:00] VITALS: BP 110/71
[2019-11-06 05:34] LABS: BASOPHILS 0.1 % (0-2); EOSINOPHILS 1.1 % (0-7); HEMATOCRIT 28.3 % (42.0-54.0); HEMOGLOBIN 8.9 g/dL (13.5-17.5); IMMATURE GRANULOCYTES 0.8 % (0-5); LYMPHOCYTES 12.3 % (15-50); MCH 25.3 pg (26.0-34.0); MCHC 31.4 g/dL (31.0-37.0); MCV 80.4 fL (80.0-100.0); MONOCYTES 11.3 % (2-11); NEUTROPHILS 74.4 % (40-80); RBC 3.52 10x6/uL (4.20-6.10); RDW 17.3 % (11.5-14.5); WBC 7.4 10x3/uL (4.8-10.8)
[2019-11-06 06:01] LABS: PLATELET COUNT 298 10x3/uL (130-400)
--- NOTE | 2019-11-06 06:21 | NUR ---
I have reviewed this patient and I concur with the Shift Assessment completed by the Licensed Practical Nurse today this shift.
[2019-11-06 06:22] LABS: PHOSPHOROUS 14.1 mg/dL (2.5-4.9)
[2019-11-06 10:11] LABS: BASOS 0 % (Not Estab.); CD4 - % CD4 POS. LYMPH 4.8 % (30.8-58.5); CD4 - ABSOLUTE CD4 HELPER 29 /uL (359-1519); EOS 0 % (Not Estab.); HEMATOCRIT 27.8 % (37.5-51.0); HEMOGLOBIN 8.8 g/dL (13.0-17.7); LYMPHS 7 % (Not Estab.); LYMPHS (ABSOLUTE) 0.6 x10E3/uL (0.7-3.1); MCH 25.8 pg (26.6-33.0); MCHC 31.7 g/dL (31.5-35.7); MCV 82 fL (79-97); MONOCYTES 10 % (Not Estab.); MONOCYTES (ABSOLUTE) 0.8 x10E3/uL (0.1-0.9); NEUTROPHILS 82 % (Not Estab.); NEUTROPHILS (ABSOLUTE) 6.7 x10E3/uL (1.4-7.0); PLATELETS 269 x10E3/uL (150-450); RBC 3.41 x10E6/uL (4.14-5.80); RDW 17.1 % (11.6-15.4); WBC 8.2 x10E3/uL (3.4-10.8)
[2019-11-06 11:00] VITALS: BP 97/54
[2019-11-06 12:10] LABS: HEPATITIS C ANTIBODY <0.1 S/CO RAT (0.0-0.9)
--- NOTE | 2019-11-06 12:55 | NUR ---
SPOKE TO DR CARVER TO CLARIFY PATIENT'S DIALYSIS DAYS, HE IS NOW A MWF, TTS ORDERS WERE DISCONTINUED AND MWF ORDERS PLACED.
[2019-11-06 15:00] VITALS: BP 139/87
--- NOTE | 2019-11-06 18:33 | NUR ---
DR CARVER DOES WANT PATIENT TO HAVE A TREATMENT TONIGHT. CALLED AND SPOKE TO NURSE. THEN TO RESUME MWF
--- NOTE | 2019-11-06 19:00 | NUR ---
REPORT RECEIVED, WILL CONTINUE POC. PATIENT IS AAOX4, LYING IN BED WATCHING TV. NO S/S OF DISTRESS OBSERVED, RR EVEN AND UNLABORED ON ROOM AIR. PATIENT DENIES NEEDS AT THIS TIME. CL IN REACH, BED LOCKED AND LOWERED. WILL CTM.
--- NOTE | 2019-11-06 20:40 | NUR ---
ESCORTED PATIENT TO DIALYSIS
[2019-11-06 20:57] VITALS: BP 127/87
[2019-11-06] MEDS ORDERED: PREDNISONE20 MG PO (22:38)
[2019-11-06] MEDS ORDERED: BACTRIM DS TAB1 EAC1 PO (22:44)
--- NOTE | 2019-11-06 23:07 | NUR ---
HEMODIALYSIS TREATMENT COMPLETED, 2L FLUID REMOVED, TOLERATED WELL.
[2019-11-07 04:34] VITALS: BP 145/98
[2019-11-07 05:19] LABS: BASOPHILS 0 % (0-2); EOSINOPHILS 0 % (0-7); HEMATOCRIT 31.1 % (42.0-54.0); HEMOGLOBIN 9.9 g/dL (13.5-17.5); IMMATURE GRANULOCYTES 0.7 % (0-5); LYMPHOCYTES 8.4 % (15-50); MCH 25.3 pg (26.0-34.0); MCHC 31.8 g/dL (31.0-37.0); MCV 79.5 fL (80.0-100.0); MONOCYTES 4.5 % (2-11); NEUTROPHILS 86.4 % (40-80); PLATELET COUNT 314 10x3/uL (130-400); RBC 3.91 10x6/uL (4.20-6.10)
--- NOTE | 2019-11-07 05:21 | NUR ---
DR. CARVER CALLED TO CHECK IF PATIENT WENT TO DIALYSIS YESTERDAY. INFORMED HER THAT HE DID FOR ABOUT 2HRS. SHE SAID PATIENT IS TO BE DIALYZED TODAY AND THEN DC'D.
[2019-11-07 06:00] LABS: WBC 5.4 10x3/uL (4.8-10.8)
[2019-11-07 09:00] VITALS: BP 146/87
--- NOTE | 2019-11-07 11:09 | NUR ---
PT REFUSED SCD'S.
--- NOTE | 2019-11-07 12:47 | NUR ---
Nutrition Follow-up: Fluctuating PO intake stating food "just wasn't good to me". Denies N/V. Last BM a couple of days ago; +flatus. Agreed to [facility]. HD yesterday (-2 L). Noted plans to d/c following HD today. Diet: Renal PO intake: 50% avg x 3 meals yesterday Wt: 158# (11/06) Labs noted: PO4 10.6 Meds noted: Tums, Renagel, Sensipar, Prednisone -Encourage PO intake and honor food preferences within diet restrictions. -[facility] sent with lunch today. -Monitor wt. -RD following.
--- NOTE | 2019-11-07 14:20 | NUR ---
I have reviewed this patient and I concur with the Shift Assessment completed by the Licensed Practical Nurse today this shift.
--- NOTE | 2019-11-07 14:23 | NUR ---
PT RETURNED FROM DIALYSIS. DIALYSIS GOT OFF 2L. WENT TO DC PT AND HE STATES HE DOESN'T WANT TO BE DISCHARGED UNTIL HE SPEAKS WITH DR. CARVER. I VERBALIZED UNDERSTANDING. SPOKE WITH DR. CARVER AND SHE STATES SHE WILL SPEAK WITH PT.
--- NOTE | 2019-11-07 14:57 | MORECARE ---
CASE MANAGEMENT DISCHARGE SUMMARY PATIENT: LARRY JOEL UNIT: [id number] ADM DATE: 11/04/19 AGE: 49 : 74 SEX: M ROOM/BED: D.2106 AUTHOR: CAILIN,DOC PHYSICIAN: REFERRING PHYSICIAN: FRED ELLSWORTH MD DATE OF SERVICE: 11/07/19 Discharge Plan Patient Name: LARRY JOEL Facility: [facility]:[place] : 1970 Planned Disposition: Home Anticipated Discharge Date: 11/07/19 Discharge Date: Expected LOS: 3 Initial Reviewer: [email or web address] Initial Review Date: 11/04/2019 Generated: 11/07/19 3:57 pm Comments DCP- Discharge Planning Updated by [email or web address]: Danika Puga on 11/07/19 1:[address] Patient now states he cannot find anyone to transport him home. ROMAN has called his mother, Bailey Joel, his father Guille Joel, has the family car and is gone, his sister Jenny states he has [employer] transportation in [place] and her car isn't working, so she can't pick him up. ROMAN contacted the Medicaid transportation [phone], spoke with Caroline, who states the patient's Medicaid does not cover his transportation. ROMAN contacted Vane with [facility], who takes patient to on a ibarra basis, and she states the agency cannot take ibarra, credit card or check. ROMAN has contacted [employer] for the wells for transportation to [place] and it will be $260.00. Contacted Latesha Bragg RN, Dir. of ROMAN and notified of above. Await decision. DCP- Discharge Planning Updated by [email or web address]: Danika Puga on 11/07/19 1:[address] CM met with patient to discuss initial discharge planning. Patient is in agreement to proceed with the assessment. Patient reports that he lives in an apartment, independently, alone. Patient is alert/oriented. Stairs/steps: 0. PCP: Nataly Narvaez. Pharmacy: [facility]. Patient states he has been able to obtain all his prescriptions. HHS: No, he declines. DME: [facility]. Patient gives permission to speak with family member.. 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 Patient has a caregiver from "[employer]" 15 hours a week. CM discussed the availability of HH, Rehab, SNF, OP Therapy, DME services. Patient declines the need for additional DME. Patient denies the need for additional services at this time and feels safe returning to previous environment. Patient denies hospitalization within the past 30 days. Transportation at time of discharge: Patient states that his family will drive him home. Patient Name: LARRY JOEL Page [id number] at 1457 All edits/amendments must be made on the electronic document DICTATION DATE: 11/07/191456 ASSOCIATE DIRECTOR OF NURSING: ISAK 11/07/191456 RPT#: [id number] DC DATE: STATUS: ADM IN [facility] [address] [place] [address] END OF REPORT
--- NOTE | 2019-11-07 15:58 | NUR ---
DISCHARGE INSTRUCTIONS GIVEN AND EXPLAINED TO PT. PT HAS NO FURTHER QUESTIONS. CHART COPY SIGNED. LEFT AC 20G IV DC'D WITH CATH INTACT. TELEMETRY DC'D AND RETURNED TO MEDICAID BILLING CLERK. CASE MANAGEMENT CALLED PT A TAXI FOR RIDE.
--- NOTE | 2019-11-07 16:01 | MORECARE ---
CASE MANAGEMENT DISCHARGE SUMMARY PATIENT: LARRY JOEL UNIT: [id number] ADM DATE: 11/04/19 AGE: 49 : 74 SEX: M ROOM/BED: D.2106 AUTHOR: CAILIN,DOC PHYSICIAN: REFERRING PHYSICIAN: FRED ELLSWORTH MD DATE OF SERVICE: 11/07/19 Discharge Plan Patient Name: LARRY JOEL Facility: [facility]:[place] : 1970 Planned Disposition: Home Anticipated Discharge Date: 11/07/19 Discharge Date: Expected LOS: 3 Initial Reviewer: [email or web address] Initial Review Date: 11/04/2019 Generated: 11/07/19 5:01 pm Comments DCP- Discharge Planning Updated by [email or web address]: Danika Puga on 11/07/19 1:[address] Patient now states he cannot find anyone to transport him home. ROMAN has called his mother, Bailey Joel, his father Guille Joel, has the family car and is gone, his sister Jenny states he has [employer] transportation in [place] and her car isn't working, so she can't pick him up. ROMAN contacted the Medicaid transportation [phone], spoke with Caroline, who states the patient's Medicaid does not cover his transportation. ROMAN contacted Vane with [facility], who takes patient to on a ibarra basis, and she states the agency cannot take ibarra, credit card or check. ROMAN has contacted [employer] for the wells for transportation to [place] and it will be $260.00. Contacted Latesha Bragg RN, Dir. of ROMAN and notified of above. Await decision. DCP- Discharge Planning Updated by [email or web address]: Danika Puga on 11/07/19 1:[address] CM met with patient to discuss initial discharge planning. Patient is in agreement to proceed with the assessment. Patient reports that he lives in an apartment, independently, alone. Patient is alert/oriented. Stairs/steps: 0. PCP: Nataly Narvaez. Pharmacy: [facility]. Patient states he has been able to obtain all his prescriptions. HHS: No, he declines. DME: [employer]. Patient gives permission to speak with family member.. 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 Patient has a caregiver from "[employer]" 15 hours a week. CM discussed the availability of HH, Rehab, SNF, OP Therapy, DME services. Patient declines the need for additional DME. Patient denies the need for additional services at this time and feels safe returning to previous environment. Patient denies hospitalization within the past 30 days. Transportation at time of discharge: Patient states that his family will drive him home. DCPIA - Discharge Planning Initial Assessment Updated by [email or web address]: Danika Puga on 11/07/19 4:00 pm * Is the patient Alert and Oriented? Yes * How many steps to enter\\exit or inside your home? * PCP Nataly Narvaez * Pharmacy [facility] * Preadmission Environment Home Alone * ADLs Independent * Other Equipment Nebulizer * List name and contact numbers for known caregivers / representatives who currently or will assist patient after discharge: Bailey Joel (mother) [phone] Guille Joel (father) [phone] Jenny (sister) [phone] * Verbal permission to speak to the caregivers and representatives has been obtained from the patient. Yes * Community resources currently utilized None * Please name any agencies selected above. "[employer]" 15 hours/week * Additional services required to return to the preadmission environment? Yes * Can the patient safely return to the preadmission environment? Yes * Has this patient been hospitalized within the prior 30 days at any hospital? No Last DP export: 11/07/19 1:57 pm Patient Name: LARRY JOEL Page [phone] at 1601 All edits/amendments must be made on the electronic document DICTATION DATE: 11/07/19 1601 SCRIPT GIRL: ISAK 11/07/19 160 RPT#: [id number] DC DATE: STATUS: ADM IN [facility] [address] [place] [address] END OF REPORT
--- NOTE | 2019-11-07 16:10 | NUR ---
PT TAKEN OUT THROUGH ENTRANCE VIA WC WITH ALL BELONGINGS BY DIRECTOR OF STRATEGIC ALLIANCES AND LEFT IN TAXI.
--- NOTE | 2019-11-07 16:14 | MORECARE ---
CASE MANAGEMENT DISCHARGE SUMMARY PATIENT: ALRRY JOEL UNIT: [id number] ADM DATE: 11/04/19 AGE: 49 : 74 SEX: M ROOM/BED: D.2106 AUTHOR: CAILIN,DOC PHYSICIAN: REFERRING PHYSICIAN: FRED ELLSWORTH MD DATE OF SERVICE: 11/07/19 Discharge Plan Patient Name: LARRY JOEL Facility: [facility]:[place] : 1970 Planned Disposition: Home Anticipated Discharge Date: 11/07/19 Discharge Date: Expected LOS: 3 Initial Reviewer: [email or web address] Initial Review Date: 11/04/2019 Generated: 11/07/19 5:13 pm Comments DCP- Discharge Planning Updated by [email or web address]: Danika Puga on 11/07/19 3:[address] CM has the OK to use Taxi transportation, per Latesha Rodriguez. of . CM contacted [employer], spoke with Verito and she is arranging transportation at this time. CM notified patient's nurse and the patient. Patient encouraged to arrange his transportation for the next time he visits. Patient has declined HHS. Refusal of service has been signed by patient. Patient now states he cannot find anyone to transport him home. CM has called his mother, Bailey Joel she states se has no car, his father Guille Joel, has the family car and is gone, his sister Jenny states he has [facility] transportation in [place] and her car isn't working, so she can't pick him up. CM contacted the Medicaid transportation [phone], spoke with Caroline, who states the patient's Medicaid does not cover his transportation. CM contacted Vane with [facility], who takes patient to on a ibarra basis, and she states the agency cannot take ibarra, credit card or check. CM has contacted [employer] for the wells for transportation to [place] and it will be $260.00. Contacted Latesha Bragg RN, Dir. of and notified of above. Await decision. DCP- Discharge Planning Updated by [email or web address]: Danika Puga on 11/07/19 1:[address] CM met with patient to discuss initial discharge planning. Patient is in agreement to proceed with the assessment. Patient reports that he lives in an apartment, independently, alone. Patient is alert/oriented. Stairs/steps: 0. PCP: Nataly Narvaez. Pharmacy: [facility]. Patient states he has been able to obtain all his prescriptions. HHS: No, he declines. DME: [employer]. Patient gives permission to speak with family member.. 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 Patient has a caregiver from [facility]" 15 hours a week. CM discussed the availability of HH, Rehab, SNF, OP Therapy, DME services. Patient declines the need for additional DME. Patient denies the need for additional services at this time and feels safe returning to previous environment. Patient denies hospitalization within the past 30 days. Transportation at time of discharge: Patient states that his family will drive him home. DCPIA - Discharge Planning Initial Assessment Updated by [email or web address]: Danika Puga on 11/07/19 4:00 pm * Is the patient Alert and Oriented? Yes * How many steps to enter\\exit or inside your home? * PCP Nataly Narvaez * Pharmacy [facility] * Preadmission Environment Home Alone * ADLs Independent * Other Equipment Nebulizer * List name and contact numbers for known caregivers / representatives who currently or will assist patient after discharge: Bailey Joel (mother) [phone] Guille Joel (father) [phone] Jenny (sister) [phone] * Verbal permission to speak to the caregivers and representatives has been obtained from the patient. Yes * Community resources currently utilized None * Please name any agencies selected above. [facility]" 15 hours/week * Additional services required to return to the preadmission environment? Yes * Can the patient safely return to the preadmission environment? Yes * Has this patient been hospitalized within the prior 30 days at any hospital? No Last DP export: 11/07/19 3:01 pm Patient Name: LARRY JOEL Page [id number] at 1614 All edits/amendments must be made on the electronic document DICTATION DATE: 11/07/19 1613 GRAIN MIXER: ISAK 11/07/19 1613 RPT#: [id number] DC DATE: STATUS: ADM IN [facility] [address] [place] [address] END OF REPORT
== END 2019-11-07 16:34 | disposition home or self-care (01) | DRG 974 ==
LOC: D.ER 23:31 → D.M2 11-04 03:14 → D.ICU 11-04 03:14 → D.M2 11-04 14:45
PROVIDERS: Family Medicine; ADMIT Internal Medicine Nephrology; ATTEND Internal Medicine Nephrology
DX: B20 Human immunodeficiency virus [HIV] disease (principal); J18.9 Pneumonia, unspecified organism; J96.01 Acute respiratory failure with hypoxia; N18.6 End stage renal disease; I50.23 Acute on chronic systolic (congestive) heart failure; I13.2 Hypertensive heart and chronic kidney disease with heart failure and with stage 5 chronic kidney disease, or end stage renal disease; E87.1 Hypo-osmolality and hyponatremia; E11.22 Type 2 diabetes mellitus with diabetic chronic kidney disease; Z99.2 Dependence on renal dialysis; Z91.15 Patient's noncompliance with renal dialysis; D63.1 Anemia in chronic kidney disease; E87.5 Hyperkalemia; J30.9 Allergic rhinitis, unspecified

== ENCOUNTER 2020-01-29 09:03 | Inpatient (IN) | payer MEDICARE ==
[~2020-01-29] VITALS: Ht 162.6 cm; Wt 77.1 kg
[~2020-01-29 09:03] MED LIST changes: +BACTRIM DS TAB1 EAC1 PO; +PREDNISONE20 MG PO
[2020-01-29 10:15] LABS: BASOPHILS 0.2 % (0-2); EOSINOPHILS 1.2 % (0-7); HEMATOCRIT 32.8 % (42.0-54.0); HEMOGLOBIN 10.3 g/dL (13.5-17.5); IMMATURE GRANULOCYTES 0.7 % (0-5); LYMPHOCYTES 9.9 % (15-50); MCH 26.8 pg (26.0-34.0); MCHC 31.4 g/dL (31.0-37.0); MCV 85.4 fL (80.0-100.0); MEAN PLATELET VOLUME 8.8 fL (7.4-10.4); MONOCYTES 7.3 % (2-11); NEUTROPHILS 80.7 % (40-80); PLATELET COUNT 186 10x3/uL (130-400); RBC 3.84 10x6/uL (4.20-6.10); RDW 20.2 % (11.5-14.5); WBC 8.5 10x3/uL (4.8-10.8)
[2020-01-29 10:28] LABS: CALCIUM 8.9 mg/dL (8.5-10.1); CARBON DIOXIDE 21.1 mmol/L (21.0-32.0); CHLORIDE - SERUM 100 mmol/L (98-107); GLUCOSE 113 mg/dL (74-106); POTASSIUM - SERUM 5.6 mmol/L (3.5-5.1); SODIUM 137 mmol/L (136-145)
[2020-01-29 10:47] LABS: ALBUMIN 3.4 g/dL (3.4-5.0); ALKALINE PHOSPHATASE 88 U/L (30-120); ALT (SGPT) 54 U/L (10-68); CKMB 5.4 U/L (0.0-3.6); CREATINE KINASE 285 UL (21-232); PROTEIN - SERUM 7.4 g/dL (6.4-8.2)
[2020-01-29 10:59] LABS: CALC OSMOLALITY 318 mosm/kg (275-300); CREATININE - SERUM 20.3 mg/dL (0.6-1.3); eGFR NON AFRICAN AMERICAN 3 mL/min (90-120)
[2020-01-29 11:00] VITALS: BP 205/142
[2020-01-29 11:00] LABS: UREA NITROGEN 135 mg/dL (7-18)
[2020-01-29 11:01] LABS: TROPONIN-I 0.147 ng/mL (0.000-0.060)
--- NOTE | 2020-01-29 11:01 | NUR ---
CRITICALLAB: BUN 135 TROPONIN 0.147 Ginger MARINO APN NOTIFIED
[2020-01-29 11:06] LABS: INR 1.11 (0.85-1.17); PROTIME 14.3 SECONDS (11.6-15.0)
[2020-01-29 11:09] LABS: PRO BNP 95564 pg/mL (0-125)
[2020-01-29 11:23] VITALS: BP 216/126
[2020-01-29] MEDS ORDERED: COREG12.5 MG PO (11:30)
[2020-01-29] MEDS ORDERED: TIVICAY50 MG PO (11:30)
[2020-01-29] MEDS ORDERED: EPIVIR HBV (11:31)
[2020-01-29] MEDS ORDERED: LASIX20 MG PO (11:32)
[2020-01-29] MEDS ORDERED: ZITHROMAX500 MG PO (11:32)
[2020-01-29 11:33] VITALS: BP 201/121
--- NOTE | 2020-01-29 12:02 | NUR ---
REPORT TO SHERRI NATH
[2020-01-29 12:15] VITALS: BP 175/107
[2020-01-29 13:01] VITALS: BP 188/111
--- NOTE | 2020-01-29 19:35 | NUR ---
PT REPORT FROM SHERRI NATH
[2020-01-29 21:49] LABS: CKMB 5.7 U/L (0.0-3.6); CREATINE KINASE 283 UL (21-232)
[2020-01-29 21:53] LABS: TROPONIN-I 0.201 ng/mL (0.000-0.060)
[2020-01-29 22:39] VITALS: BP 169/105
[2020-01-30] VITALS (8 sets, daily range): BP systolic 132–191; BP diastolic 77–116; Ht 162.6 cm; Wt 77.1 kg
[2020-01-30 04:00] LABS: ALBUMIN 3.4 g/dL (3.4-5.0); ALKALINE PHOSPHATASE 73 U/L (30-120); ALT (SGPT) 48 U/L (10-68); BILIRUBIN - TOTAL 0.65 mg/dL (0.2-1.3); CALCIUM 8.7 mg/dL (8.5-10.1); CHLORIDE - SERUM 100 mmol/L (98-107); CKMB 5.4 U/L (0.0-3.6); CREATINE KINASE 272 UL (21-232); CREATININE - SERUM 17.2 mg/dL (0.6-1.3); GLUCOSE 89 mg/dL (74-106); PROTEIN - SERUM 7.1 g/dL (6.4-8.2); SODIUM 139 mmol/L (136-145); eGFR NON AFRICAN AMERICAN 3 mL/min (90-120)
[2020-01-30 05:37] LABS: CALC OSMOLALITY 308 mosm/kg (275-300); POTASSIUM - SERUM 4.5 mmol/L (3.5-5.1); TROPONIN-I 0.259 ng/mL (0.000-0.060); UREA NITROGEN 103 mg/dL (7-18)
[2020-01-30 06:13] LABS: BASOPHILS 0.3 % (0-2); EOSINOPHILS 4.5 % (0-7); HEMATOCRIT 33.1 % (42.0-54.0); HEMOGLOBIN 10.4 g/dL (13.5-17.5); IMMATURE GRANULOCYTES 0.3 % (0-5); LYMPHOCYTES 9.6 % (15-50); MCH 26.7 pg (26.0-34.0); MCHC 31.4 g/dL (31.0-37.0); MCV 84.9 fL (80.0-100.0); MEAN PLATELET VOLUME 8.7 fL (7.4-10.4); NEUTROPHILS 69.3 % (40-80); PLATELET COUNT 203 10x3/uL (130-400); WBC 6.9 10x3/uL (4.8-10.8)
--- NOTE | 2020-01-30 08:08 | NUR ---
apresoline given for blood pressure
--- NOTE | 2020-01-30 11:50 | NUR ---
MEAL TRAY GIVEN TO PT
--- NOTE | 2020-01-30 13:21 | NUR ---
PT IS STILL REFUSING DIALYSIS, STATES HE WILL GO TO HIS OUTPT VISIT TOMORROW. PER DIALYSYS NURSE, DR ELLSWORTH IS AWARE.
--- NOTE | 2020-01-30 13:35 | NUR ---
SPOKE TO ASHWIN MUNOZ FOR JODEE TO CLARIFY THE DISCHARGE WITH LAB VALUES AND PT REFUSAL OF DIALYSIS. DISCHARGE CONTINUED PER HER.
--- NOTE | 2020-01-30 14:32 | NUR ---
CLARIFIED WITH SHAKILA JOHNSTON [phone], PT RX FILLED FOR PREDNISONE IN OCTOBER, FOR PREDNISONE 10MG (4) PILLS BID, THEN 4 PILLS DAILY X16 DAYS. PT STATES STILL ON THAT REGIMEN HE THINKS
[2020-01-30] MEDS ORDERED: PREDNISONE20 MG PO (14:43)
--- NOTE | 2020-01-30 15:51 | NUR ---
DC'D IV. CATHETER INTACT. APPLIED PRESSURE WITH 2X2 GAUZE AND TAPE
== END 2020-01-30 17:00 | disposition home or self-care (01) | DRG 682 ==
LOC: D.ER 09:03 → D.EDHOLD 12:31
PROVIDERS: Emergency Medicine; ADMIT Internal Medicine Nephrology; ATTEND Internal Medicine Nephrology
DX: I12.0 Hypertensive chronic kidney disease with stage 5 chronic kidney disease or end stage renal disease (principal); N18.6 End stage renal disease; N17.9 Acute kidney failure, unspecified; B20 Human immunodeficiency virus [HIV] disease; E87.5 Hyperkalemia; I16.0 Hypertensive urgency; E83.39 Other disorders of phosphorus metabolism; Z91.19 Patient's noncompliance with other medical treatment and regimen

== ENCOUNTER 2020-07-14 11:16 | Inpatient (IN) | payer MEDICARE ==
[~2020-07-14] VITALS: Ht 162.6 cm; Wt 91.6 kg
[~2020-07-14 11:16] MED LIST changes: +EPIVIR HBV; +EPIVIR HBV PO; +LASIX20 MG PO; +TORSEMIDE20 MG PO; +VIBRAMYCIN 100100 MG PO; +ZITHROMAX500 MG PO
--- NOTE | 2020-07-14 11:36 | NUR ---
PT TO ROOM FROM ADMISSIONS. HERE FOR FLUID OVERLOAD. MARJORIE POLANCO WITH DIALYSIS CALLING FOR PT ALREADY. TRANSPORTER TO MOVE TO DIALYISIS. WILL FINISH ADMIT WHEN ARRIVES BACK. DOES NOT APPEAR TO BE IN ANY DISTRESS.
[2020-07-14 11:42] VITALS: BP 182/121
[2020-07-14 20:21] VITALS: BP 142/85
[2020-07-14 22:32] VITALS: BP 142/85; BMI 34.7
[2020-07-14 23:24] VITALS: BP 103/52
--- NOTE | 2020-07-15 00:19 | NUR ---
PT HAD BLOOD ON HIS UNDERWEAR, GOWN AND BED. STATED HE HAD SCRATED AN AREA DOWN THERE. OBSERVED PEA SIZE OPEN AREA TO SCROTUM AND ELONGATED AREA BELOW IT APPROXIMATLY AN INCH LONG. NOT BLEEDING AT THIS TIME. ASKED HIM IF IT WAS THE SAME AREA HE HAD THE ABCESS AND HE STATED " NO THE OPPOSITE SIDE".WEARING A BRIEF AT THIS TIME WITH WASH CLOTH INSIDE. SKIN IS DRY OVERALL.
[2020-07-15 04:49] VITALS: BP 107/70
[2020-07-15 05:17] LABS: HEMATOCRIT 29.7 % (42.0-54.0); HEMOGLOBIN 8.9 g/dL (13.5-17.5); LYMPHOCYTE ABS# 0.45 10x3/uL (1.32-3.57); MCH 23.4 pg (26.0-34.0); MEAN PLATELET VOLUME 8.4 fL (7.4-10.4); NEUTROPHIL ABS# 1.79 10x3/uL (1.78-5.38); RBC 3.81 10x6/uL (4.20-6.10); RDW 21.5 % (11.5-14.5); WBC 3.5 10x3/uL (4.8-10.8)
[2020-07-15 05:18] LABS: PLATELET COUNT 169 10x3/uL (130-400)
[2020-07-15 05:49] LABS: ANION GAP 10.5 mmol/L (8-16); CALCIUM 8.4 mg/dL (8.5-10.1); CARBON DIOXIDE 31.7 mmol/L (21.0-32.0); CREATININE - SERUM 10.6 mg/dL (0.6-1.3); POTASSIUM - SERUM 4.2 mmol/L (3.5-5.1)
[2020-07-15 05:50] LABS: EOSINOPHILS 11 % (0-7); LYMPHOCYTES 18 % (15-50); MONOCYTES 3 % (2-11); NEUTROPHILS 66 % (40-80); PLATELET ESTIMATE DECREASED
[2020-07-15 08:59] VITALS: BP 153/98
[2020-07-15 12:44] VITALS: Ht 162.6 cm; Wt 91.6 kg
--- NOTE | 2020-07-15 14:45 | NUR ---
PATIENT LYING HIGH FOWLERS AAOX4, RESP EVEN AND NON LABORED, NO S/S OF DISTRESS, MEDICATIONS ADMNISTERED WITHOUT COMPLICATIONS, BEDSIDE TABLE PROVIDED FOR BREAKFAST, BP MEDS HELD FOR DIALYSIS, NO FURTHER NEEDS AT THIS TIME, CLBRUNILDA, MARIBELP
[2020-07-15 17:41] VITALS: BP 114/73
--- NOTE | 2020-07-15 19:47 | NUR ---
RECIEVED UP IN BED WITH EYES OPEN AND TV ON. ALERT AND ORIENTED X4, UP AD CHER. RT ARM RESERVED D/T AVF. REMAINS ON FLUID RESTRICTION. DENIES ANY NEEDS AT THIS TIME.
[2020-07-15 21:19] VITALS: BP 124/73
[2020-07-16 05:03] VITALS: BP 122/63
[2020-07-16 05:20] LABS: HEMOGLOBIN 9.4 g/dL (13.5-17.5); LYMPHOCYTES 13.6 % (15-50); MCHC 28.5 g/dL (31.0-37.0); MCV 80.9 fL (80.0-100.0); MEAN PLATELET VOLUME 8.9 fL (7.4-10.4); NEUTROPHILS 61.1 % (40-80); PLATELET COUNT 189 10x3/uL (130-400); RBC 4.08 10x6/uL (4.20-6.10); RDW 21.2 % (11.5-14.5); WBC 4.8 10x3/uL (4.8-10.8)
[2020-07-16 06:41] LABS: ANION GAP 17.9 mmol/L (8-16); CALCIUM 8.5 mg/dL (8.5-10.1); CARBON DIOXIDE 27.7 mmol/L (21.0-32.0); CREATININE - SERUM 12.9 mg/dL (0.6-1.3); POTASSIUM - SERUM 4.6 mmol/L (3.5-5.1)
[2020-07-16 08:00] VITALS: BP 120/66
[2020-07-16 11:00] VITALS: BP 91/58
[2020-07-16 11:47] LABS: % SATURATION 18 % (15-55); IRON 27 ug/dl (35-150); TOTAL IRON BIND CAPACITY 143 ug/dl (260-445); UNSAT IRON BIND CAPACITY 116 ug/dl (150-375)
[2020-07-16 12:59] VITALS: BP 123/80
--- NOTE | 2020-07-16 13:00 | NUR ---
LEAVING FOR DIALYSIS BY W/C.
--- NOTE | 2020-07-16 15:54 | NUR ---
DIALYSIS TREATMENT TODAY, 3 LITERS REMOVED. ALBUMIN 12.5 GR GIVEN IN ADDITION TO THE SCHEDULED ALBUMIN 25GR Q 12 HOURS. ENDING BLOOD PRESSURE 92/42 HR 63 AND O2SAT 100%. REPORT GIVEN TO RUFINA IVERSON RN.
--- NOTE | 2020-07-16 16:38 | NUR ---
DIALYSIS COMPLETED WITH B/P 105/67.
--- NOTE | 2020-07-16 19:56 | NUR ---
RECIEVED BEDSIDE SHIFT REPORT. LAYING IN BED WITH EYES CLOSED. ORIENTED X4. UP AD CHER TO B/R. HE HAD 3 CUPS ON BEDSIDE TABLE. ONE WITH WATER. REMOVED ALL CUPS EXCEPT ONE WITH ICE. DENIES ANY NEEDS AT THIS TIME.
[2020-07-16 22:31] VITALS: BP 104/60
[2020-07-17 00:51] VITALS: BP 103/60
[2020-07-17 05:46] LABS: BASOPHILS 0.2 % (0-2); EOSINOPHILS 7.1 % (0-7); HEMATOCRIT 31.1 % (42.0-54.0); IMMATURE GRANULOCYTES 0.2 % (0-5); LYMPHOCYTE ABS# 0.98 10x3/uL (1.32-3.57); MCH 22.6 pg (26.0-34.0); MCHC 28.9 g/dL (31.0-37.0); MEAN PLATELET VOLUME 8.5 fL (7.4-10.4); NEUTROPHIL ABS# 2.57 10x3/uL (1.78-5.38); NEUTROPHILS 52.5 % (40-80); PLATELET COUNT 184 10x3/uL (130-400); RBC 3.98 10x6/uL (4.20-6.10); RDW 21.2 % (11.5-14.5); WBC 4.9 10x3/uL (4.8-10.8)
[2020-07-17 05:53] LABS: ALBUMIN 3.2 g/dL (3.4-5.0); ANION GAP 13.3 mmol/L (8-16); BILIRUBIN - TOTAL 0.45 mg/dL (0.2-1.3); CALCIUM 8.4 mg/dL (8.5-10.1); CREATININE - SERUM 10.2 mg/dL (0.6-1.3); POTASSIUM - SERUM 4.3 mmol/L (3.5-5.1); PROTEIN - SERUM 8.3 g/dL (6.4-8.2)
[2020-07-17 05:54] LABS: MCV 78.1 fL (80.0-100.0)
--- NOTE | 2020-07-17 08:30 | NUR ---
LEAVING FOR DIALYSIS BY W/C. WILL CONT. PLAN OF CARE.
[2020-07-17 10:19] VITALS: BP 110/55
--- NOTE | 2020-07-17 10:53 | NUR ---
DIALYSIS COMPLETED EARLY. B/P 105/58. WILL CONT. TO MONITOR.
--- NOTE | 2020-07-17 12:00 | NUR ---
Nutrition Follow-up: Appetite improving; ate >50% of breakfast this AM. Denies N/V/C/D. C/o weakness. HD yesterday (-4 L); HD again today. Diet: Renal, 1500 mL fluid restriction, no free fluids No new wt; last wt: 202# (07/15) Last BM: 07/16 Labs noted: Na 135, K+ 4.3, Ca 8.4, PO4 7.0, Alb 3.2 Meds noted: Renagel -Encourage PO intake and honor food preferences within diet restrictions. -Need new wt. -RD will follow up within 4-5 days.
[2020-07-17 12:49] VITALS: BP 113/71
--- NOTE | 2020-07-17 13:34 | NUR ---
PRE-OPS GIVEN. TO HOME CARE NURSE BY BED.
[2020-07-17 16:24] VITALS: BP 93/60
[2020-07-17 20:00] VITALS: BP 98/74
--- NOTE | 2020-07-18 01:09 | NUR ---
I have reviewed this patient and I concur with the Shift Assessment completed by the Licensed Practical Nurse today this shift.
[2020-07-18 04:24] VITALS: BP 137/87
[2020-07-18 04:45] LABS: HEMATOCRIT 33.1 % (42.0-54.0); HEMOGLOBIN 9.6 g/dL (13.5-17.5); LYMPHOCYTE ABS# 0.82 10x3/uL (1.32-3.57); MCH 23.1 pg (26.0-34.0); MCV 79.6 fL (80.0-100.0); NEUTROPHIL ABS# 2.01 10x3/uL (1.78-5.38); RBC 4.16 10x6/uL (4.20-6.10); RDW 20.9 % (11.5-14.5); WBC 4.4 10x3/uL (4.8-10.8)
[2020-07-18 04:56] LABS: PLATELET COUNT 147 10x3/uL (130-400)
[2020-07-18 05:14] LABS: ALBUMIN 3.2 g/dL (3.4-5.0); ANION GAP 12.4 mmol/L (8-16); BILIRUBIN - TOTAL 0.37 mg/dL (0.2-1.3); CALCIUM 8.8 mg/dL (8.5-10.1); CREATININE - SERUM 11.9 mg/dL (0.6-1.3); POTASSIUM - SERUM 4.4 mmol/L (3.5-5.1); PROTEIN - SERUM 8.5 g/dL (6.4-8.2)
[2020-07-18 06:15] LABS: EOSINOPHILS 1 % (0-7); LYMPHOCYTES 29 % (15-50); MONOCYTES 3 % (2-11); NEUTROPHILS 67 % (40-80); PLATELET ESTIMATE NORMAL
[2020-07-18 07:58] VITALS: BP 133/85
[2020-07-18 15:16] VITALS: BP 147/89
--- NOTE | 2020-07-18 19:45 | NUR ---
INITIAL ROUNDS AND ASSESSMENT COMPLETED. PT RESTING IN BED. RESERVED RIGHT ARM FOR LOWER FOREARM AVF. O2 @ 3L/NC WITH NONLABORED RESPIRATIONS. PT DOES NOT HAVE IV ACCESS. HE IS ALERT/ORIENTED. NO DISTRESS. CALL LIGHT IN REACH.
[2020-07-18 20:08] VITALS: BP 133/79
--- NOTE | 2020-07-18 23:23 | NUR ---
PT RESTING WITH EYES CLOSED. RESPS EVEN/NONLABORED WITH O2 @ 3L/NC. CALL LIGHT IN REACH.
[2020-07-19 04:31] VITALS: BP 139/73
--- NOTE | 2020-07-19 04:36 | NUR ---
PT RESTING IN BED WITH NO DISTRESS. CALL LIGHT IN REACH.
--- NOTE | 2020-07-19 08:24 | NUR ---
AM MEDS GIVEN AT THIS TIME. PT UP TO SIDE OF BED, EATING BREAKFAST, A/O X4, PT A LITTLE SOB ON 3L NC, O2 SAT OK, ENCOURAGED PT TO TAKE IN DEEP BREATHS. NO IV ACCESS NOTED. RT AV FISTULA WITH BRUIT AND THRILL. PT DENIES ANY NEED AT THIS TIME. CALL LIGHT IN REACH, NAD NOTED, WILL CONTINUE PLAN OF CARE.
[2020-07-19 09:37] VITALS: BP 143/87
[2020-07-19 10:04] LABS: BASOPHILS 0.5 % (0-2); HEMATOCRIT 32.2 % (42.0-54.0); HEMOGLOBIN 9.2 g/dL (13.5-17.5); IMMATURE GRANULOCYTES 0.2 % (0-5); LYMPHOCYTE ABS# 0.73 10x3/uL (1.32-3.57); LYMPHOCYTES 16.5 % (15-50); MCH 22.9 pg (26.0-34.0); MCHC 28.6 g/dL (31.0-37.0); MCV 80.1 fL (80.0-100.0); MEAN PLATELET VOLUME 8.5 fL (7.4-10.4); MONOCYTES 26.9 % (2-11); NEUTROPHIL ABS# 2.16 10x3/uL (1.78-5.38); NEUTROPHILS 48.9 % (40-80); PLATELET COUNT 138 10x3/uL (130-400); RBC 4.02 10x6/uL (4.20-6.10); RDW 20.7 % (11.5-14.5); WBC 4.4 10x3/uL (4.8-10.8)
[2020-07-19 10:19] LABS: ALBUMIN 3.2 g/dL (3.4-5.0); ANION GAP 9.8 mmol/L (8-16); BILIRUBIN - TOTAL 0.33 mg/dL (0.2-1.3); CALCIUM 8.7 mg/dL (8.5-10.1); CARBON DIOXIDE 30.5 mmol/L (21.0-32.0); PHOSPHOROUS 6.7 mg/dL (2.5-4.9); POTASSIUM - SERUM 4.3 mmol/L (3.5-5.1); PROTEIN - SERUM 8.1 g/dL (6.4-8.2)
--- NOTE | 2020-07-19 10:57 | NUR ---
PT TO DIALYSIS.
--- NOTE | 2020-07-19 15:24 | NUR ---
PROVIDED VERBAL AND WRITTEN DISCHARGE TEACHING TO PT, WHO VERBALIZED UNDERSTANDING REGARDING TEACHING. CALLED [facility] [employer] TAXI AND COST FOR TAXI WILL BE $260 WHICH [facility] IS PAYING FOR, TAXI WILL BE HERE IN THE NEXT 20-30MIM.
--- NOTE | 2020-07-19 16:03 | NUR ---
PT LEFT UNIT VIA WHEELCHAIR, WITH ALL BELONGINGS, NAD NOTED.
--- NOTE | 2020-07-19 18:24 | MORECARE ---
CASE MANAGEMENT DISCHARGE SUMMARY PATIENT: LARRY CRUZ UNIT: [id number] ADM DATE: 07/14/20 AGE: 49 : 74 SEX: M ROOM/BED: D.5239 AUTHOR: CAILIN,DOC PHYSICIAN: REFERRING PHYSICIAN: ADRIEN CARVER DO DATE OF SERVICE: 07/19/20 Case Management Discharge Planning Summary COMMENTS ENTERED DATE: 07/19/20 18:20 CT COMMENT TYPE: Discharge Planning REVIEWER: Bakari Bryson CM met with patient to complete DC plan and to evaluate needs. Patient lives independently at home alone. Patient stated that his mother cannot come to get him. Phone call x3 to Bailey Cruz, mother of patient ([phone]) with no answer. Patient stated that he has no one to transport him home. Patient stated that [facility] cannot transport until Tuesday. [place] [facility] stated fare to be $260.00 will notify CM broommaking supervisor. Patient stated that his primary care provider is through the [facility] clinic in [place], [place]. Patient stated that his pharmacy is [facility]. At discharge, the patient plans to return home and feels this is a safe discharge. CM discussed availability of home health, rehab services, and medical equipment. Patient declined HHS, SNF, IPR, and DME. Patient stated that he has a walker and cane. Patient voiced no other needs at this time and is satisfied with DC plan. DC IMM delivered, explained, signed by the patient, and placed in chart. Signed form also left with the patient. CM will continue to follow and will assist as needed with dc plans/needs. DCP REVIEW SUMMARY ANTICIPATED D/C DATE: 07/19/2020 EXPECTED LOS : 5 CASE STATUS: DCP Initiated INITIAL REVIEW: 07/15/2020 INITIAL REVIEWER: Bakari Bryson FINAL DISCHARGE DISPOSITION: : FINAL REVIEWER: FINAL REVIEW DATE: DCP Focus Questions & Answers - Added on: QUESTION: ANSWER : PATIENT: LARRY CRUZ ENCOUNTER: [id number] MEDICAL RECORD#: [id number] ADMISSION DATE: 07/14/2020 DISCHARGE DATE: 07/19/2020 ATTENDING MD: : AGE: 49 MARITAL STATUS: S DC PLAN ID: [id number] FACILITY: [facility] PRINTED ON: 07/19/20 18:24 CT All edits/amendments must be made on the electronic document DICTATION DATE: 07/19/201823 ACCOUNTING INSTRUCTOR: ISAK 07/19/201823 RPT#: [id number] DC DATE:07/19/20 STATUS: DIS IN [facility] [address] [place] [address] END OF REPORT
--- NOTE | 2020-07-19 18:35 | MORECARE ---
CASE MANAGEMENT DISCHARGE SUMMARY PATIENT: LARRY CRUZ UNIT: [id number] ADM DATE: 07/14/20 AGE: 49 : 74 SEX: M ROOM/BED: D.2115 AUTHOR: CAILIN,BRANDON PHYSICIAN: REFERRING PHYSICIAN: ADRIEN CARVER DO DATE OF SERVICE: 07/19/20 Case Management Discharge Planning Summary COMMENTS ENTERED DATE: 07/19/20 18:20 CT COMMENT TYPE: Discharge Planning REVIEWER: Bakari Bryson CM met with patient to complete DC plan and to evaluate needs. Patient lives independently at home alone. Patient stated that his mother cannot come to get him. Phone call x3 to Bailey Cruz, mother of patient ([phone]) with no answer. Patient stated that he has no one to transport him home. Patient stated that [facility] cannot transport until Tuesday. [place] [facility] stated fare to be $260.00 will notify CM passenger service supervisor. Patient stated that his primary care provider is through the [facility] clinic in [place], [place]. Patient stated that his pharmacy is [facility]. At discharge, the patient plans to return home and feels this is a safe discharge. CM discussed availability of home health, rehab services, and medical equipment. Patient declined HHS, SNF, IPR, and DME. Patient stated that he has a walker and cane. Patient voiced no other needs at this time and is satisfied with DC plan. DC IMM delivered, explained, signed by the patient, and placed in chart. Signed form also left with the patient. CM will continue to follow and will assist as needed with dc plans/needs. DCP REVIEW SUMMARY ANTICIPATED D/C DATE: 07/19/2020 EXPECTED LOS : 5 CASE STATUS: DCP Initiated INITIAL REVIEW: 07/15/2020 INITIAL REVIEWER: Bakari Bryson FINAL DISCHARGE DISPOSITION: : FINAL REVIEWER: FINAL REVIEW DATE: DCP Focus Questions & Answers DCP REV -DCP Review Added on: 07/19/20 6:30 pm QUESTION: ANSWER DCP Evaluation Patient gives permission to discuss discharge plans with: (name, relationship and number) : BAILEY CRUZ, MOTHER, Physical Status: : Independent with ADL's Baseline cognitive status: : *Oriented to person, place, situation, time and present Patient's ability to cope with chronic illness : d. No chronic illness Medication Management: : Patient states can afford medications Pharmacy [facility]): : [facility] Does Patient have transportation to get home and to follow-up medical appointments when discharged from the hospital? : No Does the patient have electricity at home? : Yes Does the patient have running water in their house? : Yes Equipment in use: : Cane - Single Leg Equipment in use: : Walker - Rolling Mental health screen: : No mental health history Patient's current cognitive status: : *Oriented to person, place, situation, time and present Functional screen assessment: : Basic needs can adequately be met by self Patient with capacity for self-care or can be cared for in same environment as prior to hospitalization? : Yes Does the patient have the ability to pay for or attain post discharge needs / services? : Yes Is there a likelihood that the patient will require additional services to return to the preadmission environment? : Yes Patient and/or caregiver agree upon recommended discharge plan? : Yes Physical environment modification needed / anticipated for discharge: : No Planned post hospital services available for patient? : Yes Would patient like to participate in any Care Coordination programs (if applicable): : Not applicable DCP Re-evaluation Would patient like to participate in any Care Coordination programs (if applicable): : Not applicable PATIENT: LARRY CRUZ ENCOUNTER: [id number] MEDICAL RECORD#: [id number] ADMISSION DATE: 07/14/2020 DISCHARGE DATE: 07/19/2020 ATTENDING MD: BAIRON: AGE: 49 MARITAL STATUS: S DC PLAN ID: [id number] FACILITY: [facility] PRINTED ON: 07/19/20 18:35 CT All edits/amendments must be made on the electronic document DICTATION DATE: 07/19/201834 EQUAL OPPORTUNITY SPECIALIST: ISAK 07/19/201834 RPT#: [id number] DC DATE:07/19/20 STATUS: DIS IN [facility] [address] [place] [address] END OF REPORT
--- NOTE | 2020-07-22 07:43 | MORECARE ---
CASE MANAGEMENT DISCHARGE SUMMARY PATIENT: LARRY CRUZ UNIT: [id number] ADM DATE: 07/14/20 AGE: 49 : 74 SEX: M ROOM/BED: D.2112 AUTHOR: CAILIN,BRANDON PHYSICIAN: REFERRING PHYSICIAN: ADRIEN CARVER DO DATE OF SERVICE: 07/22/20 Case Management Discharge Planning Summary COMMENTS ENTERED DATE: 07/19/20 18:20 CT COMMENT TYPE: Discharge Planning REVIEWER: Bakari Bryson CM met with patient to complete DC plan and to evaluate needs. Patient lives independently at home alone. Patient stated that his mother cannot come to get him. Phone call x3 to Bailey Cruz, mother of patient ([phone]) with no answer. Patient stated that he has no one to transport him home. Patient stated that [facility] cannot transport until Tuesday. 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 Patient stated that his primary care provider is through the [facility] clinic in [place], [place]. Patient stated that his pharmacy is [facility]. At discharge, the patient plans to return home and feels this is a safe discharge. CM discussed availability of home health, rehab services, and medical equipment. Patient declined HHS, SNF, IPR, and DME. Patient stated that he has a walker and cane. Patient voiced no other needs at this time and is satisfied with DC plan. DC IMM delivered, explained, signed by the patient, and placed in chart. Signed form also left with the patient. CM will continue to follow and will assist as needed with dc plans/needs. DCP REVIEW SUMMARY ANTICIPATED D/C DATE: 07/19/2020 EXPECTED LOS : 5 CASE STATUS: DCP Initiated INITIAL REVIEW: 07/15/2020 INITIAL REVIEWER: Bakari Bryson FINAL DISCHARGE DISPOSITION: : FINAL REVIEWER: FINAL REVIEW DATE: DCP Focus Questions & Answers DCP REV -DCP Review Added on: 07/19/20 6:30 pm QUESTION: ANSWER DCP Evaluation Patient gives permission to discuss discharge plans with: (name, relationship and number) : BAILEY CRUZ, MOTHER, Physical Status: : Independent with ADL's Baseline cognitive status: : *Oriented to person, place, situation, time and present Patient's ability to cope with chronic illness : d. No chronic illness Medication Management: : Patient states can afford medications Pharmacy name([facility]): : [facility] Does Patient have transportation to get home and to follow-up medical appointments when discharged from the hospital? : No Does the patient have electricity at home? : Yes Does the patient have running water in their house? : Yes Equipment in use: : Cane - Single Leg Equipment in use: : Walker - Rolling Mental health screen: : No mental health history Patient's current cognitive status: : *Oriented to person, place, situation, time and present Functional screen assessment: : Basic needs can adequately be met by self Patient with capacity for self-care or can be cared for in same environment as prior to hospitalization? : Yes Does the patient have the ability to pay for or attain post discharge needs / services? : Yes Is there a likelihood that the patient will require additional services to return to the preadmission environment? : Yes Patient and/or caregiver agree upon recommended discharge plan? : Yes Physical environment modification needed / anticipated for discharge: : No Planned post hospital services available for patient? : Yes Would patient like to participate in any Care Coordination programs (if applicable): : Not applicable DCP Re-evaluation Would patient like to participate in any Care Coordination programs (if applicable): : Not applicable PATIENT: LARRY CRUZ ENCOUNTER: [id number] MEDICAL RECORD#: [id number] ADMISSION DATE: 07/14/2020 DISCHARGE DATE: 07/19/2020 ATTENDING MD: BAIRON: AGE: 49 MARITAL STATUS: S DC PLAN ID: [id number] FACILITY: [facility] PRINTED ON: 07/22/20 7:43 CT All edits/amendments must be made on the electronic document DICTATION DATE: 07/22/20742 DIRECTOR OF LITIGATION: ISAK 07/22/20742 RPT#: [id number] DC DATE:07/19/20 STATUS: DIS IN [facility] [address] [place] [address] END OF REPORT
== END 2020-07-19 16:39 | disposition home or self-care (01) | DRG 291 ==
LOC: D.M2 11:16
PROVIDERS: ADMIT Internal Medicine; ATTEND Internal Medicine
PROC: 5A1D70Z Performance of Urinary Filtration, Intermittent, Less than 6 Hours Per Day (ICD-10-PCS; principal; 2020-07-14)
DX: I13.2 Hypertensive heart and chronic kidney disease with heart failure and with stage 5 chronic kidney disease, or end stage renal disease (principal); I50.43 Acute on chronic combined systolic (congestive) and diastolic (congestive) heart failure; N18.6 End stage renal disease; B20 Human immunodeficiency virus [HIV] disease; N25.81 Secondary hyperparathyroidism of renal origin; D63.1 Anemia in chronic kidney disease; Z99.2 Dependence on renal dialysis; Z91.15 Patient's noncompliance with renal dialysis; I42.9 Cardiomyopathy, unspecified